=== PATIENT | female | born 1985 | race Caucasian/White ===

== ENCOUNTER 2019-09-12 05:35 | Outpatient (CLI) | payer OTHER ==
[~2019-09-12] VITALS: Ht 175 cm; Wt 96.8 kg
[~2019-09-12 05:35] MED LIST: ACHD5005 PO; AMT10T PO; BIRTH CONTROL PILL PO; IBP600T1 PO; PENT100C5 PO
[2019-09-15] MEDS ORDERED: OXYC1TAB87 PO (11:09)
[2019-09-15] MEDS ORDERED: IBUP-1780 PO (11:09)
[2019-09-15] MEDS ORDERED: DCS100C PO (11:09)
== END 2019-09-13 09:08 | disposition home or self-care (01) ==
LOC: PREOP 05:35
PROVIDERS: ATTEND Obstetrics & Gynecology
DX: Z01.818 Encounter for other preprocedural examination (principal)

== ENCOUNTER 2019-10-12 19:20 | Emergency (ER) | payer OTHER ==
[~2019-10-12] VITALS: Ht 175 cm; Wt 97.5 kg
[~2019-10-12 19:20] MED LIST changes: +DCS100C PO; +IBUP-1780 PO; +OXYC1TAB87 PO
--- OUTSIDE RECORDS SUMMARY | 2019-10-12 19:27 | XMS REPORT ---
Author Author Janae MIKE [facility] Address [address] [place] [address] Care Team Providers Care Bit Bender Name Role Phone AUDIE MIKE Unavailable PROBLEMS Type Condition ICD9-CM Code LGE28-HR Code Onset Dates Condition S tatus SNOMED Code Problem Cervical motion tenderness N94.9 Act elias 893325955 Problem Abnormal uterine bleeding N93.9 Acti ve [id number] Problem Post depression F53 Active 13258127 Problem Anxiety F41.9 Active 20499188 ALLERGIES No Information ENCOUNTERS Encounter Location Date Diagnosis [place] [address] [address] Aug, [place] [address] [address] Jul, IUD (intrauterine device) in place Z97.5 and Abnormal uterine bleeding N93.9 [place] [address] [address] Jul, IUD (intrauterine device) in place Z97.5 and Abnormal uterine bleeding N93.9 [address] [address] Jul, Well woman exam with routine gynecologic al exam Z01.419 ; Breast cancer screening Z12.39 ; Cervical motion tenderness N94.9 ; Screen for STD (sexually transmitted disease) Z11.3 ; Pelvic pain R10.2 ; IUD (intrauterine device) in place Z97.5 and Abnormal uterine bleeding N93.[address] [id number] Apr, Encounter for immunization Z23 [address] [place] [id number] Jan, Cellulitis of left leg L03.116 [facility] [address] [id number] [place] [id number] Dec, [facility] [address] [id number] [place] [id number] Dec, [facility] [address] [id number] [place] [id number] Dec, Infected insect bite or sting W57.XXXA [facility] [address] [id number] [place] [id number] Sep, Strep throat J02.0 [facility] [address] [facility] [place] [address] Jan, [facility] [address] [id number] [place] [id number] Jan, Nipple pain N64.[address] [facility] [address] [id number] [place] [id number] Oct, Strep throat J02.0 [facility] [address] [id number] [place] [id number] Aug, Acute midline thoracic back pain M54.6 [facility] [address] [id number] [place] [id number] Jul, Acute low back pain without sciatica, un specified back pain laterality M54.5 [facility] [address] [id number] [place] [address] Jul, Gastroenteritis K52.9 [facility] [address] [facility]07[place] [id number] Feb, [facility] [address] [place] [id number] [place] [id number] Feb, [facility] [address] [place] [id number] [place] [id number] Feb, [facility] [address] [place] [id number] [place] [id number] Dec, [facility] [address] [id number] Dec, [facility] [address] [id number] [place] [address] Oct, Strep sore throat J02.0 and Fever, unspe cified fever cause R50.9 [facility] [address] [id number] [place] [id number] Oct, [facility] [place] [id number] [place] [id number] Aug, [facility] [address] [id number] [place] [address] Jul, UTI symptoms R39.9 [facility] [address] [id number] [place] [address] Jun, Acute non-recurrent maxillary sinusitis J01.00 and Anxiety F41.9 [place] [id number] [place] [id number] Jun, [facility] [address] [id number] Apr, [facility] [address] [id number] [place] [address] Apr, Breast pain, right N64.4 [facility] [address] [id number] [place] [id number] Mar, problem Z91.89 and Breast pain, right N64.4 [facility] [address] [id number] [place] [address] Dec, Post depression F53 and Anxiety F 41.9 [facility] [address] [id number] [place] [id number] Oct, OME (otitis media with effusion) H65.90 ; Dizziness R42 and Post depression F53 [facility] [address] [id number] [place] [address] Oct, Post depression F53 and Overweigh t E66.3 [facility] [address] [id number] [place] [address] Oct, Post depression F53 ; Overweight E66.3 ; Breast feeding status of mother Z39.1 and Otitis externa of both ears H60.93 [facility] [address] [place] [id number] [place] [address] Oct, [facility] [address] [id number] [place] [id number] Oct, Otitis externa H60.90 and Vertigo R42 [facility] [id number] [id number] May, [facility] [address] [id number] Apr, [facility] [address] [id number] Apr, [facility] [address] [address] Oct, [facility] [address] [address] Oct, [facility] [address] [address] Mar, [facility] [address] [address] Mar, [facility] [address] [address] Mar, [facility] [address] [address] Mar, [facility] [address] [address] November, [facility] [address] [address] November, [facility] [address] [address] November, [facility] [address] [address] November, [facility] [address] [address] November, [facility] [address] [facility]75[address] [place] [address] November, [facility] [address] [facility]75[address] [place] [address] November, IMMUNIZATIONS No Known Immunizations SOCIAL HISTORY Never Assessed REASON FOR VISIT PLAN OF CARE VITAL SIGNS MEDICATIONS Unknown Medications RESULTS Name Result Date Reference Range PAP SMEAR 2013-11-16 [facility] CYTOLOGY REPORT FOOTNOTE PAP RESULT PROCEDURES No Known procedures INSTRUCTIONS MEDICATIONS ADMINISTERED No Known Medications MEDICAL (GENERAL) HISTORY Type Description Date Medical History Depression Surgical History Exploratory cervical 2013 Hospitalization History childbirth only Hospitalization History 07/2017 ER for fall
--- OUTSIDE RECORDS SUMMARY | 2019-10-12 19:27 | XMS REPORT ---
Author Author Janae Arriaza Doctor Organization [facility] Address Unknown Phone Unavailable Care Team Providers Care Coil Rewind Machine Operator Name Role Phone Migration, Doctor Unavailable Unavailable PROBLEMS Type Condition ICD9-CM Code ZIZ03-PX Code Onset Dates Condition S tatus SNOMED Code Problem Acute midline thoracic back pain M54.6 Active 838180779 Problem Nipple pain N64.4 Active 02094158 3 Problem Post depression F53 Active 69408859 Problem Anxiety F41.9 Active 77420507 ALLERGIES No Information ENCOUNTERS Encounter Location Date [facility] [address] [id number] [id number] Sep, Strep throat J02.0 [facility] [address] [facility] [id number] [place] [address] Jan, [facility] [address] [id number] [id number] Jan, Nipple pain N64.4 [facility] [place] [address] [facility] [address] [id number] [id number] Oct, Strep throat J02.0 [facility] [address] [id number] [address] Aug, Acute midline thoracic back pain M54.6 [facility] [place] [address] [id number] [id number] Jul, Acute low back pain without sciatica, un specified back pain laterality M54.5 [facility] [address] [id number][place] [address] Jul, Gastroenteritis K52.9 [facility] [address] [id number] [place] [id number] Feb, [facility] [place] [address] [id number] [place] [id number] Feb, [facility] [address] [id number] [place] [id number] Feb, [facility] [address] [id number] [place] [id number] Dec, [facility] [address] [id number] [place] [id number] Dec, [facility] [address] [id number][place] [address] Oct, Strep sore throat J02.0 and Fever, unspe cified fever cause R50.9 [facility] [address] [id number] [id number] Oct, [facility] [address] [id number] [place] [id number] Aug, [facility] [address] [id number] [facility] [address] Jul, UTI symptoms R39.9 [facility] [address] [id number] [facility] [id number] Jun, Acute non-recurrent maxillary sinusitis J01.00 and Anxiety F41.9 [facility] [address] [id number] [place] [id number] Jun, [facility] [address] [id number] [place] [id number] Apr, [facility] [address] [id number][place] [id number] Apr, Breast pain, right N64.4 [facility] [address] [id number], [place] [id number] Mar, problem Z91.89 and Breast pain, right N64.4 [facility] [address] [id number][place] [address] Dec, Post depression F53 and Anxiety F 41.9 [facility] [address] [id number], [place] [id number] Oct, OME (otitis media with effusion) H65.90 ; Dizziness R42 and Post depression F53 [facility] [address] [id number][place] [id number] Oct, Post depression F53 and Overweigh t E66.3 [facility] [address] [id number] [address] Oct, Post depression F53 ; Overweight E66.3 ; Breast feeding status of mother Z39.1 and Otitis externa of both ears H60.93 [facility] [address] [facility] [id number] [address] [place] [address] Oct, [facility] [address] [id number][place] [id number] Oct, Otitis externa H60.90 and Vertigo R42 [facility] [address] [id number] [place] [id number] May, [facility] [address] [id number] [place] [id number] Apr, [facility] [address] [id number] [place] [id number] Apr, [facility] [address] [facility] [id number] [address] [place] [address] Oct, [facility] [address] [facility] [id number] [address] [place] [address] Oct, [facility] [address] [facility] [id number] [address] [place] [address] Mar, [facility] [address] [facility] [id number] [address] [place] [address] Mar, [facility] [address] [facility] [id number] [address] [place] [address] Mar, [facility] [address] [facility] [id number] [address] [place] [address] Mar, [facility] [address] [facility] [id number] [address] [place] [address] November, [facility] [address] [facility] [id number] [address] [place] [address] November, [facility] [address] [facility] [id number] [address] [place] [address] November, [facility] [address] [facility] [id number] [address] [place] [address] November, [facility] [address] [facility] [id number] [address] [place] [address] November, [facility] [address] [facility] [id number] [address] [place] [address] November, [facility] [address] [facility] [id number] [address] [place] [address] November, IMMUNIZATIONS No Known Immunizations SOCIAL HISTORY Never Assessed REASON FOR VISIT [facility]MR-[facility] PLAN OF CARE VITAL SIGNS MEDICATIONS No Known Medications RESULTS No Results PROCEDURES No Known procedures INSTRUCTIONS MEDICATIONS ADMINISTERED No Known Medications MEDICAL (GENERAL) HISTORY Type Description Date Medical History Depression Surgical History Exploratory cervical 2013 Hospitalization History childbirth only Hospitalization History 07/2017 ER for fall
--- OUTSIDE RECORDS SUMMARY | 2019-10-12 19:27 | XMS REPORT ---
Author Janae Alvarado [facility] eClinicalWorks Address Unknown Phone Unavailable Care Team Providers Care Co Teacher Name Role Phone AUDIE MIKE CP Unavailable Allergies No Known Allergies Problems Problem Type Condition Code Onset Dates Condition Statu s Problem Counseling on other sexually transmitted diseases V65. 45 Active Problem Trichomonal vulvovaginitis 131.01 A ctive Problem Screening examination for venereal disease V74.5 Active Problem Streptococcal sore throat 034.0 Ac tive Problem Routine gynecological examination V72.31 Active Problem Screening examination for pulmonary tuberculosis V74.1 Active Medications No Known Medications Results No Known Results Summary Purpose eClinicalWorks Submission
--- OUTSIDE RECORDS SUMMARY | 2019-10-12 19:27 | XMS REPORT ---
Author Author Janae MIKE [facility] [address] [place] [address] Care Team Providers Care Cutter Operator Tile Name Role Phone AUDIE MIKE Unavailable PROBLEMS Type Condition ICD9-CM Code MNL83-BA Code Onset Dates Condition S tatus SNOMED Code Problem Cervical motion tenderness N94.9 Act elias 686473522 Problem Abnormal uterine bleeding N93.9 Acti ve 85848435899417 Problem Post depression F53 Active 81767399 Problem Anxiety F41.9 Active 93168359 ALLERGIES No Information ENCOUNTERS Encounter Location Date Diagnosis [facility] [place] [address] [address] Jul, IUD (intrauterine device) in place Z97.5 and Abnormal uterine bleeding N93.9 [facility] [place] [address] [address] Jul, IUD (intrauterine device) in place Z97.5 and Abnormal uterine bleeding N93.9 [address]07757[place] [address] Jul, Well woman exam with routine gynecologic al exam Z01.419 ; Breast cancer screening Z12.39 ; Cervical motion tenderness N94.9 ; Screen for STD (sexually transmitted disease) Z11.3 ; Pelvic pain R10.2 ; IUD (intrauterine device) in place Z97.5 and Abnormal uterine bleeding N93.9 [address] [place] [id number] Apr, Encounter for immunization Z23 [address]757[place] [id number] Jan, Cellulitis of left leg L03.[address], [place] [id number] Dec, [facility] [address] [id number] [place] [address] Dec, [facility] [address] [id number] [place] [id number] Dec, Infected insect bite or sting W57.XXXA [facility] [address] [id number] [place] [id number] Sep, Strep throat J02.0 [facility] [address] [facility]7570 [place] [address] Jan, [facility] [address] [id number] [place] [id number] Jan, Nipple pain N64.4 [facility] [address] [id number] [place] [id number] Oct, Strep throat J02.0 [facility] [address] [id number] [place] [address]32[address] Aug, Acute midline thoracic back pain M54.6 [facility] [address] [id number] [place] [id number] Jul, Acute low back pain without sciatica, un specified back pain laterality M54.5 [facility] [address] [id number] [place] [id number] Jul, Gastroenteritis K52.9 [facility] [address] [id number] Feb, [facility] [address] [id number] Feb, [facility] [address] [id number] Feb, [facility] [address] [id number] Dec, [facility] [address] [id number] Dec, [facility] [address] [id number] [place] [address]23[address] Oct, Strep sore throat J02.0 and Fever, unspe cified fever cause R50.9 [facility] [address] [id number] [place] [id number] Oct, [place] [id number] [place] [id number] Aug, [address] [id number] [place] [id number] Jul, UTI symptoms R39.[address] [id number] [place] [address] Jun, Acute non-recurrent maxillary sinusitis J01.00 and Anxiety F41.9 [place] [id number] [place] [id number] Jun, [address] [id number] Apr, [address] [id number] [place] [id number] Apr, Breast pain, right N64.4 [facility] [address] [id number] [place] [id number] Mar, problem Z91.89 and Breast pain, right N64.4 [facility] [place] [address] [facility] [address] [id number] [place] [id number] Dec, Post depression F53 and Anxiety F 41.9 [facility] [address] [facility] [address] [id number] [place] [id number] Oct, OME (otitis media with effusion) H65.90 ; Dizziness R42 and Post depression F53 [facility] [address] [id number] [place] [id number] Oct, Post depression F53 and Overweigh t E66.3 [facility] [address] [id number] [place] [id number] Oct, Post depression F53 ; Overweight E66.3 ; Breast feeding status of mother Z39.1 and Otitis externa of both ears H60.93 [facility] [address] [place] [address] [id number] [place] [address] Oct, [facility] [address] [facility] [id number] [id number] Oct, Otitis externa H60.90 and Vertigo R42 [facility] [address] [facility]07757[place] [id number] May, [facility] [address] [place] [id number] [place] [id number] Apr, [facility] [address]07757[place], [place] [id number] Apr, [facility] [address] [address] Oct, [facility] [address] [address] Oct, [facility] [address] [address] Mar, [facility] [address] [address] Mar, [facility] [address] [address] Mar, [facility] [address] [address] Mar, [facility] [address] [address] November, [facility] [address] [address] November, [facility] [address] [address] November, [facility] [address] [address] November, [facility] [address] [address] November, [facility] [address] [address] November[facility] [address] [facility] [id number] [place] [address] November, IMMUNIZATIONS No Known Immunizations SOCIAL HISTORY Never Assessed REASON FOR VISIT PLAN OF CARE VITAL SIGNS Height 69.5 in 2013-11-13 Weight 185.9 lbs 2013-11-13 Temperature 97.6 degrees Fahrenheit 2013-11-13 Heart Rate 72 bpm 2013-11-13 Respiratory Rate 16 2013-11-13 Blood pressure systolic 115 mmHg 2013-11-13 Blood pressure diastolic 70 mmHg 2013-11-13 MEDICATIONS Unknown Medications RESULTS Name Result Date Reference Range TRICHOMONAS (IN-HOUSE) 2013-11-13 Control + Exp date 09/2014 Lot # [id number] TRICHOMONAS POSITIVE UA LONG DIP 2013-11-13 LIUDMILA negative BLO + Clarity clear Color yellow Exp date GLU negative KET negative DUSTIN + Lot # [id number] NIT negative Odor No pH 6.0 _ 5.0 - 8.5 Protein negative SG >=1.030 URO 0.2 EU/dL 0.20 - 1.9 PROCEDURES Procedure Date Ordered Result Body Site TRICHOMONAS VAGIN, DIR PROBE November 13, 2013 CYTOPATH C/V AUTO FLUID REDO November 13, 2013 CHYLMD TRACH, DNA, AMP PROBE November 13, 2013 URINALYSIS, AUTO, W/O SCOPE November 13, 2013 INSTRUCTIONS MEDICATIONS ADMINISTERED No Known Medications MEDICAL (GENERAL) HISTORY Type Description Date Medical History Depression Surgical History Exploratory cervical 2013 Hospitalization History childbirth only Hospitalization History 07/2017 ER for fall
--- OUTSIDE RECORDS SUMMARY | 2019-10-12 19:27 | XMS REPORT ---
Author Janae Alvarado [facility] eClinicalWorks Address Unknown Phone Unavailable Care Team Providers Care Material Flow Engineer Name Role Phone AUDIE MIKE CP Unavailable [...]
--- OUTSIDE RECORDS SUMMARY | 2019-10-12 19:27 | XMS REPORT ---
Author Author [employer] Organization [employer] Address [address] [address] Care Team Providers Care Workforce Manager Name Role Phone MIKE, AUDIE Unavailable MIKE, AUDIE Unavailable Unavailable [facility] Unavailable NO, LOCAL PHYSICIAN Unavailable Unavailable MIKE, AUDIE Unavailable MIKE, AUDIE Unavailable MIKE, AUDIE Unavailable MIKE, AUDIE Unavailable EATON, BRITTANY Unavailable EATON, BRITTANY Unavailable EATON, BRITTANY Unavailable Migration, Doctor Unavailable Unavailable Migration, Doctor Unavailable Unavailable EATON, BRITTANY Unavailable MIKE, AUDIE J Unavailable Unavailable EATON, BRITTANY Unavailable MIKE, AUDIE Unavailable MIKE, AUDIE Unavailable MIKE, AUDIE Unavailable [facility] PCP [phone] [facility] PCP Unavailable Unavailable CLARENCE SOTO APRN Unavailable Unavailable SEALS DONIDIA E Unavailable Unavailable Allergies Normalized Allergy Reported Date of Reaction(s) Care Provider Facility Allergy Type classification allergen Allergy Onset Substance Adhesive Tape Adhesive Tape 09-14-2019 - no informatio n NIDIA [facility] Via Allergy (3 Translations: DO [place] sources.) [ adhesive Hospital - tape] [place] ([address]903) Drug Allergy Chlorhexidine Chlorhexidine 09-12-2019 - Earline SOTO , [facility] Via (8 sources.) Translations: KEEGAN [place] [ Hospital - chlorhexidine] [place] (40118) Substance Latex Latex 09-14-2019 - Earline [facility] Via Allergy (3 Translations: DO [place] sources.) [ latex] [facility] (67484) DA (2 Unclassified Soap 04-18-2014 - EARLINE SOTO [facility] Via sources.) KEEGAN [facility] (06414) Medications Current Medications Medication Ingredient Drug Dose Dates Status Sig Sig Care Class(es) (Normalized) (Original) Provid er acetaminoph Acetaminoph Opioid 09-15-19 Active no Oxycodone no en 325 mg / en / Agonist 20 information Hcl/Acetamin name oxyCODONE oxyCODONE ophen Active (no hydrochlori 1 ORAL Every phone) de 5 mg 4HRS 30 oral tablet September 14 (1 source.) 2019 11:09am docusate Docusate no 09-15-19 Active no Docusate no sodium 100 information 20 information Sodium name mg oral Active 100 (no capsule (1 ORAL Twice A phone) source.) Day September 15, 2019 11:09am lactobacill lactobacill no 100 mg 07-22-19 Active no Aci dophilus no us us information 18 - information 100 mg na me acidophilus acidophilus 07-29-19 Orally 2 (no 100 mg oral Translation 18 times a day phone) wafer (1 s: [ 1 capsule source.) Acidophilus 12h Jul, 100 mg] 2017Jul, 07 days Active no Levonorgest Progestin, Active no Mirena no information rel Progestin-c information Active name (1 source.) ontaining (no Intrauterin phone) e Device metroNIDAZO metroNIDAZO Nitroimidaz 500 mg 11-14-19 Active take 1 Flagyl 500 no LE 500 mg LE ole 14 tablet by mg 1 tablet name oral tablet Translation Antimicrobi mouth twice by Oral (n o (1 source.) s: [ Flagyl al daily route 2 phone) 500 mg] times per day for 7 days November, Active mupirocin mupirocin RNA 20 01-19-20 Active no Bactrob an 2 no 20 mg/ml Translation Synthetase mg/mL 18 - information % Exter juan antonio name topical s: [ Inhibitor 01-29-20 2 times a (no cream (1 Bactroban 2 Antibacteri 18 day 1 phone) source.) %] al application to affected area 12h Jan, Jan, 10 day(s) Active ondansetron ondansetron Serotonin-3 8 mg 07-22-19 Active no Zofran 8 MG no 8 mg oral Translation Receptor 18 information Orally ever y name strip (1 s: [ Zofran Antagonist 8 hours for (no source.) 8 MG] nausea 1 phone) tablet Jul, 07 days Active penicillin Penicillin no 500 mg 04-03-20 Active take 1 Penic illin V no v potassium V information 14 tablet by Potassium name 500 mg oral Translation mouth twice 500 mg take (no tablet (1 s: [ daily 1 tablet phone) source.) Penicillin (500 mg) by V Potassium oral route 2 500 mg] times per day for 10 days Mar, Active Completed/Discontinued Medications Medication Ingredient Drug Dose Dates Status Sig Sig Care Class(es) (Normalized) (Original) Provid er no no 04-15-20 Complete take 1 dose no information Control information 14 d by mouth Control P ill name (2 Pill once daily Discontinued (no sources.) 1 ORAL Daily phone) April 15, 2014 Problems Active Problems Problem Normalized Date of Normalized Normalized Provider Fac ility Classification Problem(s) Problem Problem Problem Sta tus Onset/Resoluti Duration on Spondylosis; Acute thoracic Episodic Active AUDIE Comm unity intervertebral back pain [place] [address] [facility] disc Translations: of [place] disorders; [ Acute [place] ([address]134) other back midline problems (20 thoracic back sources.) pain, - Acute midline thoracic back pain M54.6, - Acute low back pain without sciatica, unspecified back pain laterality M54.5, - Acute low back pain without sciatica, unspecified back pain laterality M54.5, Acute midline thoracic back pain, - Acute midline thoracic back pain M54.6] Other Body mass 09-21-2019 - Chronic Active NIDIA SEALS , [facility] Via nutritional; index (BMI) DO [place] endocrine; and 31.0-31.9, Hospital - metabolic adult [place] disorders (1 (02555) source.) Residual Family history 09-21-2019 - Episodic Active NIDIA SEA LS , [facility] Via codes; of ischemic DO [facility] unclassified heart disease Hospital - (1 source.) and other [place] diseases of (30982) the circulatory system Mood disorders Major 09-21-2019 - Chronic Active NIDIA SEA LS , [facility] Via (1 source.) depressive DO [facility] disorder, [facility] - single [place] episode, (59183) unspecified Menstrual Menometrorrhag 09-21-2019 - Chronic Active COMMUNIT Y [place] Via disorders (4 ia [facility] sources.) Translations: [facility] [ EXCESSIVE (48770) AND FREQUENT MENSTRUATION WITH, DYSMENORRHEA, UNSPECIFIED] Other Obesity, 09-21-2019 - Chronic Active NIDIA SEALS , [facility] Via nutritional; unspecified DO [facility] endocrine; and Hospital - metabolic [place] disorders (1 (51966) source.) Other Other long 09-21-2019 - Episodic Active NIDIA SEALS , [facility] Via aftercare (1 term (current) DO [place] source.) drug therapy Hospital - [place] (30604) Allergic Other 09-21-2019 - Episodic Active NIDIA SEALS , [facility] Via reactions (4 nonmedicinal DO [facility] sources.) substance Hospital - allergy status [place] Translations: (01559) [ ALLERGY STATUS TO OTH DRUG/MEDS/BIOL SUB, LATEX ALLERGY STATUS, ALLERGY STATUS TO ANALGESIC AGENT STATUS] Other Pain in wrist Episodic Active [facility] non-traumatic [facility] joint [facility] disorders (4 (48249) sources.) Unclassified Episodic Active BRITTANY EATON Commu nity (2 sources.) depression [address] [place] [address] Translations: of [facility] [ Post [place] ([address]) depression] Ovarian cyst Unspecified 09-21-2019 - Episodic Active NIDIA SE ALS , [facility] Via (2 sources.) ovarian cyst, DO [place] left side Hospital - Translations: [place] [ UNSPECIFIED (21512) OVARIAN CYST, RIGHT SIDE] Past or Other Problems Problem Normalized Date of Normalized Normalized Provider Fac ility Classification Problem(s) Problem Problem Problem Sta tus Onset/Resoluti Duration on External cause Bitten or no information no information BRITTANY E ATON [facility] codes: stung by [address] [place] [address] Center Natural/enviro nonvenomous [facility] (1 insect and [place] (42521) source.) other nonvenomous arthropods, initial encounter Translations: [ - Infected insect bite or sting W57.XXXA] Procedures Procedure Normalized Procedure Procedure Result Performer Facility Date 11-13-2013 Cytp c/v auto thin lyr no information no name (no p meron) [facility] prepj scr mnl rescr [facility] (45049) 09-15-2018 [facility] influenza no information no name (no phon e) [facility] (22652) 09-15-2018 [place] no information no name (no phone) [facility] streptococcus group a [facility] (07967) 10-27-2017 [place] no information no name (no phone) [facility] streptococcus group a [facility] (44126) 11-13-2013 [place] chlamydia no information no name (no phone) [facility] trachomatis amplified [facility] probe [facility] (87445) 11-13-2013 [place] trichomonas no information no name (no phone) [facility] vaginalis direct probe [facility] (14216) 09-15-2018 Ketorolac tromethamine no information no name (no p meron) [facility] inj [facility] (17216) 09-15-2018 Penicillin g no information no name (no phone) Com [facility] benzathine inj [facility] (03971) 10-27-2017 Penicillin g no information no name (no phone) [facility] benzathine inj [facility] (06249) 09-15-2018 Therapeutic no information no name (no phone) [facility] prophylactic/dx [facility] injection subq/im [place] (36996) 10-27-2017 Therapeutic no information no name (no phone) [facility] prophylactic/dx [facility] injection subq/im [place] (16897) 11-13-2013 Urnls dip stick/tablet no information no name (no p meron) [facility] rgnt auto w/o [facility] (30500) Immunizations Normalized Immunization Date Notes Care Provider Facili ty Immunization BICILLIN C-R 10-27-2017 - no information BRITTANY CASANOVA [address] [facility] Translations: [ 10-27-2017 [facility] BICILLIN C-R] [place] (09709) BICILLIN 09-15-2018 no information BRITTANY CASANOVA [address] Comm [facility] [place]/PENICILLIN G [facility] (87998[facility] influenza, seasonal, 04-30-2019 no information no name [facility] injectable [facility] (59244) TORADOL (IM) 60 09-15-2018 no information BRITTANY CASANOVA 10727 [facility] MG/2ML (UP TO 15 MG) [facility] (62212) TORADOL (IM) 60 08-24-2017 no information no name [facility] MG/2ML (UP TO 15 MG) [facility] (80465) Results Test Name Value Interpretation Reference Range Date Time Fa cility (Normalized) (Normalized) (Medline Reference) ua long dip on null Clarity (U) clear (no code) [facility] (14347) Color (U) yellow (no code) [facility] (33675) Glucose no information (no code) 60 - 125 mg/dL [facility] [Mass/Vol] [facility] (85394) pH (U) 6.0 _ (no code) [facility] (11491) Protein Ql (U) no information (no code) [facility] (96831) UA LONG DIP (no code) [facility] (81112) UA LONG DIP 251272 (no code) [facility] (03828) UA LONG DIP No (no code) [facility] (78820) UA LONG DIP >=1.030 (no code) [facility] (99590) UA LONG DIP 0.2 EU/dL (no code) [facility] (38320) trichomonas (in-house) on null TRICHOMONAS no information (no code) [facility] ([facility] (01680) TRICHOMONAS 09/2014 (no code) [facility] (45115) TRICHOMONAS 169389 (no code) [facility] (32081) strep a (in house) on null STREP A (IN [id number] (no code) [facility] HOUSE) [facility] (76706) STREP A (IN 03/2020 (no code) [facility] (26883) STREP A (IN [id number] (no code) [facility]) [facility] (77655) STREP A (IN 04/30 (no code) [facility] HOUSE) [facility] (07144) influenza a & b (in house) on null INFLUENZA A & B no information (no code) Critical access hospital (IN HOUSE) [facility] (11978) INFLUENZA A & B [id number] (no code) Critical access hospital (IN HOUSE) [facility] (04922) INFLUENZA A & B 04/05/21 (no code) Critical access hospital (IN HOUSE) [facility] (88200) No panel information on null Control no information (no code) [facility] (80041) Exp date 10/2019 (no code) [facility] (54964) Lot # [id number] (no code) [facility] (45373) venous blood hemoglobin measurement (mass/volume) on 2019-09-15 Hemoglobin (Bld) 9.6 g/dL (L) 12.1 - 17.2 g/dL 09-15-2019 [place] Via [Mass/Vol] 10:100500 [facility] (48735) blood monocytes/100 leukocytes on 2019-09-15 Monocytes/100 6 % (no code) 2 - 8 % 09-15-2019 [facility] WBC (Bld) 10:100500 [facility] (19828) blood monocytes automated count (number/volume) on 2019-09-15 Monocytes (Bld) 1.3 10*3/uL (H) 0.3 - 0.9 09-15-2019 Asce nsion Via [#/Vol] 10*3/uL 10:10-0500 [facility] l (43516) blood hematocrit (volume fraction) on 2019-09-15 Hematocrit (Bld) 29 % (L) 36.1 - 50.3 % 09-15-2019 [facility] Via [Volume 10:100500 [facility] fraction] (65801) blood erythrocytes automated count (number/volume) on 2019-09-15 RBC (Bld) 3.39 10*6/uL (L) 4.2 - 6.1 09-15-2019 [place] Via [#/Vol] 10*6/uL 10:050 [facility] l (95832) automated erythrocyte mean corpuscular volume (mcv) measurement on 2019-09-15 MCV (RBC) 86 fL (no code) 80 - 100 fL 09-15-2019 [place] Via [Entitic vol] 10:050 [facility] (85464) automated erythrocyte mean corpuscular hemoglobin concentration measurement (mass/volume) on 2019-09-15 MCHC (RBC) 33 g/dL (no code) 32 - 36 g/dL 09-15-2019 [facility] [Mass/Vol] 10:050 [facility] (11182) automated erythrocyte mean corpuscular hemoglobin (mass per erythrocyte) on 2019-09-15 MCH (RBC) 28 pg (no code) 27 - 31 pg 09-15-2019 [place] V ia [Entitic mass] 10:10 [facility] (97744) automated erythrocyte distribution width ratio on 2019-09-15 Erythrocyte 12.3 % (no code) 11.6 - 14.6 % 09-15-2019 [facility] Via distribution 10:050 [facility] width (RBC) (25810) [Ratio] automated eosinophil count on 2019-09-15 Eosinophils 0.0 10*3/uL (no code) 0.05 - 0.5 09-15-2019 [facility] Via (Bld) [#/Vol] 10*3/uL 10:050 [facility] al (59191) automated blood platelet mean volume measurement on 2019-09-15 Platelet mean 10.5 fL (H) 7.2 - 11.7 fL 09-15-2019 Asce nsion Via volume (Bld) 10:100500 [facility] [Entitic vol] (61701) automated blood platelet count (count/volume) on 2019-09-15 Platelets (Bld) 305 10*3/uL (no code) 150 - 450 09-15-2019 Asce nsion Via [#/Vol] 10*3/uL 10: [facility] (16334) automated blood neutrophils/100 leukocytes on 2019-09-15 Neutrophils/100 77 % (H) 40 - 60 % 09-15-2019 [facility] WBC (Bld) 10: [facility] (09702) automated blood neutrophil count (number/volume) on 2019-09-15 Neutrophils 15.9 10*3/uL (H) 1.7 - 7 10*3/uL 09-15-2019 A [facility] Via (Bld) [#/Vol] 10: [facility] (25265) automated blood lymphocytes/100 leukocytes on 2019-09-15 Lymphocytes/100 16 % (no code) 20 - 40 % 09-15-2019 [facility] WBC (Bld) 10: [facility] (70475) automated blood lymphocyte count (number/volume) on 2019-09-15 Lymphocytes 3.4 10*3/uL (no code) 0.9 - 2.9 09-15-2019 [facility] (Bld) [#/Vol] 10*3/uL 10: [facility] al (25885) automated blood leukocyte count (number/volume) on 2019-09-15 WBC (Bld) 20.6 10*3/uL (H) 3.5 - 10.5 09-15-2019 [facility] [#/Vol] 10*3/uL 10:050 [facility] l (72250) automated blood eosinophils/100 leukocytes on 2019-09-15 Eosinophils/100 0 % (no code) 1 - 4 % 09-15-2019 [facility] WBC (Bld) 10:10050 [facility] (24081) automated blood basophils/100 leukocytes on 2019-09-15 Basophils/100 0 % (no code) 0.5 - 1 % 09-15-2019 [facility] WBC (Bld) 10:100500 [facility] (13125) automated blood basophil count (number/volume) on 2019-09-15 Basophils (Bld) 0.0 10*3/uL (no code) 0 - 0.3 10*3/uL 09-15-2019 [place] Via [#/Vol] 10:10-0500 [facility] (18281) methicillin resistant staphylococcus aureus (mrsa) screening culture on 2019-09-14 MRSA isol Org MRSA not (no code) 09-14-2019 [place] Vi a specific cx Ql isolated 10:550500 [facility] (Un[facility] spec) (80541) No panel information on 2019-09-10 ABO group Nom A (no code) [facility] ([facility]ld[facility] (87117) Basophils (Bld) 0.083 10*3/uL (N) 0 - 0.3 10*3/uL [facility] [#/Vol] [facility] (61621) Basophils/100 0.7 % (N) 0.5 - 1 % [facility] alth WBC (Bld) [facility] (50991) Blood group NO ANTIBODIES (N) [facility] antibody screen DETECTED [facility] (80403) Eosinophils 0.202 10*3/uL (N) 0.05 - 0.5 [facility] He alth (Bld) [#/Vol] 10*3/uL [facility] (58953) Eosinophils/100 1.7 % (N) 1 - 4 % [facility] WBC (Bld) [facility] (79109) Erythrocyte 11.8 % (N) 11.6 - 14.6 % [facility] ealth distribution [facility] (RBC) [facility] [Ratio] (76604) Hematocrit (Bld) 39.7 % (N) 36.1 - 50.3 % [facility] [Volume [facility]] [facility] (84804) Hemoglobin (Bld) 13.2 g/dL (N) 12.1 - 17.2 g/dL [facility] [Mass/Vol] [facility] (86472) Lymphocytes 3.749 10*3/uL (N) 0.9 - 2.9 [facility] (Bld) [#/Vol] 10*3/uL [facility] (84036) Lymphocytes/100 31.5 % (N) 20 - 40 % [facility] WBC (Bld) [facility] (23091) MCH (RBC) 28.2 pg (N) 27 - 31 pg [facility] Heal th [Entitic mass] [facility] (42091) MCHC (RBC) 33.2 g/dL (N) 32 - 36 g/dL [facility] [Mass/Vol] [facility] (36022) MCV (RBC) 84.8 fL (N) 80 - 100 fL [facility] Hea lth [Entitic vol] [facility] (50807) Monocytes (Bld) 0.702 10*3/uL (N) 0.3 - 0.9 [facility] Health [#/Vol] 10*3/uL [facility] (59790) Monocytes/100 5.9 % (N) 2 - 8 % [facility] He alth WBC (Bld) [facility] (59362) Neutrophils 7.164 10*3/uL (N) 1.7 - 7 10*3/uL [facility] (Bld) [#/Vol] [facility] (05207) Neutrophils/100 60.2 % (N) 40 - 60 % [facility] WBC (Bld) [facility] (33994) Platelet mean 11.4 fL (N) 7.2 - 11.7 fL [facility] volume (Bld) [facility] [Entitic vol] [facility] (19359) Platelets (Bld) 332 10*3/uL (N) 150 - 450 [facility] Health [#/Vol] 10*3/uL [facility] (74759) RBC (Bld) 4.68 10*6/uL (N) 4.2 - 6.1 [facility] Hea lth [#/Vol] 10*6/uL [facility] (09057) Rh Nom (Bld) no information (no code) [facility] Healt h [facility] (97633) WBC (Bld) 11.9 10*3/uL (H) 3.5 - 10.5 [facility] [#/Vol] 10*3/uL [facility] (23121) No panel information on 2019-07-30 Albumin 4.6 g/dL (N) 3.4 - 5.4 g/dL [facility] [Mass/Vol] [facility] (49512) Albumin/Globulin 1.5 {ratio} (N) 1 - 2.5 {ratio} Comm [facility] [Mass ratio] [facility] (96198) ALP [Catalytic 55 U/L (N) 44 - 147 U/L [facility] Health activity/Vol] [facility] (37484) ALT [Catalytic 16 U/L (N) 4 - 40 U/L [facility] ealth activity/Vol] [facility] (60093) AST [Catalytic 16 U/L (N) 10 - 34 U/L [facility] activity/Vol] [facility] (67731) Basophils (Bld) 0.037 10*3/uL (N) 0 - 0.3 10*3/uL [facility] [#/Vol] [facility] (94675) Basophils/100 0.4 % (N) 0.5 - 1 % [facility] WBC (Bld) [facility] (88650) Bilirubin 0.5 mg/dL (N) 0.1 - 1.2 mg/dL [facility] [Mass/Vol] [facility] (75388) C. trachomatis NOT DETECTED (N) [facility] rRNA HIRAL+probe [facility] (Unsp spec) [facility] (55654) Calcium 9.4 mg/dL (N) 8.5 - 10.2 mg/dL [facility] [Mass/Vol] [facility] (36762) Chloride 107 mmol/L (N) 95 - 106 mmol/L [facility] [Moles/Vol] [facility] (78580) Cholesterol 117 mg/dL (N) 180 - 200 mg/dL [facility] [Mass/Vol] [facility] (46738) Cholesterol in 41 mg/dL (L) [facility] HDL [Mass/Vol] [facility] (32949) Cholesterol in 62 mg/dL (N) 0 - 100 mg/dL [facility] LDL [Mass/Vol] [facility] (97381) Cholesterol non 76 mg/dL (N) [facility] HDL [Mass/Vol] [facility] (77777) Cholesterol.tota 2.9 {ratio} (N) Counts Include [facility] lt l/Cholesterol in [facility] HDL [Mass ratio] [facility] (70288) CLINICAL no information (N) [facility] INFORMATION: [facility] (23945) CO2 [Moles/Vol] 26 mmol/L (N) 23 - 29 mmol/L [facility] (74200) COMMENT no information (no code) [facility] (87483) COMMENT no information (no code) [facility] (49857) Creatinine 0.72 mg/dL (N) [facility] [Mass/Vol] [facility] (45953) [employer] no information (N) Critical [facility] hospital stain Nom [facility] (Cvx/Vag) [ID] [facility] (13123) Date of previous no information (N) [facility] biopsy [facility] (60991) Date of previous 2017 (N) [facility] PAP smear [facility] (17597) Eosinophils 0.184 10*3/uL (N) 0.05 - 0.5 [facility] alth (Bld) [#/Vol] 10*3/uL [facility] (55054) Eosinophils/100 2.0 % (N) 1 - 4 % [facility] WBC (Bld) [facility] (79397) Erythrocyte 11.8 % (N) 11.6 - 14.6 % [facility] ealth distribution [facility] width (RBC) [facility] [Ratio] (68681) GFR/1.73 sq M 128 (N) 90 - 120 [facility] predicted among mL/min/{1.73_m2} mL/min/{1.73_m2} [facility] [place] MDRD [facility] (S/P/Bld) [Vol (60893) rate/Area] GFR/1.73 sq 111 (N) 90 - 120 [facility] th M.predicted MDRD mL/min/{1.73_m2} mL/min/{1.73_m2} [facility] (S/P/Bld) [Vol [facility] rate/Area] (07541) Globulin (S) 3.1 g/dL (N) 2 - 3.5 g/dL [facility] ealth [Mass/Vol] [facility] (07490) Glucose 103 mg/dL (H) 60 - 125 mg/dL [facility] [Mass/Vol] [facility] (31457) Hematocrit (Bld) 39.2 % (N) 36.1 - 50.3 % [facility] [Volume [facility]] [facility] (71533) Hemoglobin (Bld) 13.4 g/dL (N) 12.1 - 17.2 g/dL [facility] [Mass/Vol] [facility] (98135) HSV identified NOT ISOLATED (N) [facility] Or[facility] specific cx [facility] [place] (Unsp spec) [facility] (69206) Last menstrual CURRENT (N) [facility] period start [facility] (50269) Lymphocytes 2.659 10*3/uL (N) 0.9 - 2.9 [facility] He alth (Bld) [#/Vol] 10*3/uL [facility] (85452) Lymphocytes/100 28.9 % (N) 20 - 40 % [facility] WBC (Bld) [facility] (08239) MCH (RBC) 28.9 pg (N) 27 - 31 pg [facility] th [Entitic mass] [facility] (49138) MCHC (RBC) 34.2 g/dL (N) 32 - 36 g/dL [facility] alth [Mass/Vol] [facility] (51069) MCV (RBC) 84.5 fL (N) 80 - 100 fL [facility] [Entitic vol] [facility] (57845) Microscopic no information (N) [facility]to [facility] Nom (Cvx) [facility] (12578) Monocytes (Bld) 0.598 10*3/uL (N) 0.3 - 0.9 [facility] [#/Vol] 10*3/uL [facility] (44457) Monocytes/100 6.5 % (N) 2 - 8 % [facility] He alth WBC (Bld) [facility] (16280) N. gonorrhoeae NOT DETECTED (N) [facility] h rRNA HIRAL+probe [facility] Ql (Unsp spec) [facility] (60254) Neutrophils 5.722 10*3/uL (N) 1.7 - 7 10*3/uL [facility] (Bld) [#/Vol] [facility] (00936) Neutrophils/100 62.2 % (N) 40 - 60 % [facility] WBC (Bld) [facility] (80458) Platelet mean 11.4 fL (N) 7.2 - 11.7 fL [facility] volume (Bld) [facility] [Entitic vol] [facility] (85327) Platelets (Bld) 334 10*3/uL (N) 150 - 450 [facility] [#/Vol] 10*3/uL [facility] (11071) Potassium 4.1 mmol/L (N) 3.7 - 5.2 mmol/L [facility] [Moles/Vol] [facility] (78834) Protein 7.7 g/dL (N) 6.4 - 8.3 g/dL [facility] [Mass/Vol] [facility] (35440) RBC (Bld) 4.64 10*6/uL (N) 4.2 - 6.1 Counts Include [facility] lth [#/Vol] 10*6/uL [facility] (98369) Sodium 139 mmol/L (N) 135 - 145 mmol/L [facility] [Moles/Vol] [facility] (64423) Specimen source Cervix (N) Critical access hospital Cyto stain Nom [facility] (Cvx/Vag) [facility] (85046) Specimen source CERVIX (no code) Critical access hospital Nom (Unsp spec) [facility] (64330) Statement of no information (N) [facility] Cyto [facility] (Cvx/Vag) [facility] [Interp] (54316) Triglyceride 61 mg/dL (N) 0 - 150 mg/dL [facility] [Mass/Vol] [facility] (22280) TSH Qn 1.59 m[IU]/L (N) 0.4 - 4 m[IU]/L [facility] (42545) Urea nitrogen 11 mg/dL (N) 7 - 20 mg/dL [facility] [Mass/Vol] [facility] (67235) Urea NOT APPLICABLE (no code) [facility] nitrogen/Creatin [facility] [Mass ratio] [facility] (14755) WBC (Bld) 9.2 10*3/uL (N) 3.5 - 10.5 Critical access hospital [#/Vol] 10*3/uL [facility] (04435) No panel information on 2018-09-15 Control no information (no code) [facility] (06412) Control no information (no code) [facility] (05166) Exp date 04/05/21 (no code) [facility] (83845) Exp date 04/30 (no code) [facility] (87962) Lot # [id number] (no code) [facility] (57519) Lot # [id number] (no code) [facility] (06304) Vital Signs Vital Sign Value Interpretation Reference Date Time Care Prov ider Facility (Normalized) (Normalized) Range BMI (Body Mass 30.05 kg/m2 (no code) 15 - 25 kg/m2 09-15-2018 Rody GONZÁLESON Community Index) 10:00-0500 49952 [facility] (44399) BMI (Body Mass 29.3 kg/m2 (no code) 15 - 25 kg/m2 10-27-2017 MARY CASANOVA Community Index) 10:40-0400 03809 [facility] (34064) BMI (Body Mass 28.77 kg/m2 (no code) 15 - 25 kg/m2 07-22-2017 JE NNIFER Community Index) 13:00-0500 [place] [id number] [facility] (58113) Body height 176.53 cm (no code) cm 11-13-2013 AUDIE Ms mmunity 13:39-0400 [place] [id number] [facility] (10430) Body 99.5 [degF] (no code) 97.8 - 99.0 09-15-2018 BRITTANY EAT ON [facility] Temperature [degF] 10:00-0500 80998 [facility] (04207) Body 100.8 [degF] (no code) 97.8 - 99.0 10-27-2017 BRITTANY EA TON [facility] Temperature [degF] 10:40-0400 29071 [facility] (13196) Body 97.1 [degF] (no code) 97.8 - 99.0 07-22-2017 [facility] Temperature [degF] 13:00-0500 [place] 724813 [facility] (69399) Body 99.2 [degF] (no code) 97.8 - 99.0 04-03-2014 BRITTANY EAT ON [facility] Temperature [degF] 17:52-0400 94910 [facility] (10091) Body 97.6 [degF] (no code) 97.8 - 99.0 11-13-2013 [facility] temperature [degF] 13:39-0400 [place] 724813 [facility] (57028) Body weight 93.67 kg (no code) kg 09-15-2018 BRITTANY EATON Community 10:00-0500 70197 [facility] (01996) Body weight 86.18 kg (no code) kg 04-03-2014 BRITTANY EATON [facility] 17:52-0400 50111 [facility] (64386) Body weight 84.32 kg (no code) kg 11-13-2013 AUDIE [facility] munity 13:39-0400 [place] 724813 [facility] (96076) Height 176.53 cm (no code) cm 09-15-2018 BRITTANY [facility] ommunity 10:00-[address] [place] [address] (70865) Height 176.53 cm (no code) cm 10-27-2017 BRITTANY [facility] om[facility]ity 10:40-[address] [place] [address] (03481) Height 176.53 cm (no code) cm 07-22-2017 AUDIE Puneet nity 13:00-[address] (00259) Height 176.53 cm (no code) cm 04-03-2014 BRITTANY [facility] ommunity 17:52-[address] [place] [address] (96089) Pulse Oximetry 98 % (no code) 95 - 100 % 09-15-2018 BRITTANY CENTENO [facility] 10:00-[address] [place] [address] (95804) Pulse Oximetry 97 % (no code) 95 - 100 % 07-22-2017 [facility] 13:00-[address] (29590) Weight 91.31 kg (no code) kg 10-27-2017 BRITTANY Estevez mmunity 10:40-[address] [place] [address] (89377) Weight 89.68 kg (no code) kg 07-22-2017 AUDIE [facility] ity 13:00-[address] (67804) Interventions No Information Plan of Treatment Normalized Care Care Detail Care Activity Date Care Provider F acility Activity Patient Education Hysterectomy (DC) no information MARCOS [facility] [place] [facility] [id number] [place] [address] (79681) Goals Patient Goal Desired Goal no information no information Social History Normalized Code Original Code Date Value Tobacco smoking status Tobacco smoking status 09-12-2019 - Never smoked tobacco NHIS NHIS (finding) no information no information 04-15-2014 Occasionally Us es no information no information 12-15-2012 No no information no information 09-12-2019 Never a Smoker Sex Assigned At Sex Assigned At 1985 - Female Functional Status Status Assessment Result Care Provider Facility Functional status [facility] Opioid-induced [facility] [place] [facility] Sedation Scale (POSS) [address] ([address]212) Awake and alert Mental Status Status Assessment Result Care Provider Facility Cognitive function Comprehension Ability [facility] [place] [facility] Understands Concepts [address] (56201) Cognitive function [facility]id[facility] [place] [facility] Sedation Scale (POSS) [address] (24194) Awake and alert Encounters Encounter Normalized Encounter Encounter Diagnosis Care Provi aliya Organization Date Type 09-14-2019 Admission to day no information (no phone) [facility] (no phone) 09-15-2019 04-03-2014 [facility] no information BRITTANY CASANOVA ( no [facility] - phone) Doctor (no phone) 04-03-2014 Migration (no phone) - BRITTANY CASANOVA (no 04-03-2014 phone) Doctor Migration (no phone) BRITTANY CASANOVA (no phone) Doctor Migration (no phone) 03-16-2014 [facility] no information Doctor Migrati on (no [facility] - phone) (no phone) 03-16-2014 - 03-16-2014 11-16-2013 [facility] no information AUDIE Gloria (no [facility] - phone) Doctor (no phone) 11-16-2013 [facility] (no phone) - AUDIE MIKE (no 11-16-2013 phone) Doctor Migration (no phone) AUDIE MIKE (no phone) Doctor Migration (no phone) 11-13-2013 [facility] no information AUDIE Gloria (no [facility] - phone) Doctor (no phone) 11-13-2013 [facility] (no phone) - AUDIE MIKE (no 11-13-2013 phone) Doctor Migration (no phone) AUDIE MIKE (no phone) Doctor Migration (no phone) 08-24-2017 Patient encounter no information no name (no phone) no organization name (no phone) 07-22-2017 Patient encounter no information no name (no phone) no organization name (no phone) 09-14-2019 Patient encounter no information NIDIA E SEALS DO ( no [facility] - procedure phone) [facility] 09-15-2019 (no phone) 09-12-2019 Patient encounter no information (no phone) Ascen yadiel [facility] (no phone) 09-13-2019 09-12-2019 Patient encounter no information NIDIA E SEALS DO ( no [facility] - procedure phone) [facility] 09-13-2019 (no phone) 09-10-2019 Patient encounter no information (no phone) [facility] (no phone) 09-03-2019 Patient encounter no information (no phone) [facility] (no phone) 08-10-2019 Patient encounter no information no name (no phone) no organization name procedure (no phone) 04-30-2019 Patient encounter no information no name (no phone) no organization name procedure (no phone) 01-08-2019 Patient encounter no information no name (no phone) no organization name procedure (no phone) 12-26-2018 Patient encounter no information no name (no phone) no organization name procedure (no phone) 12-26-2018 Patient encounter no information no name (no phone) no organization name procedure (no phone) 09-15-2018 Patient encounter no information no name (no phone) no organization name procedure (no phone) 09-13-2019 no information Encounter for other no name (no phon e) no organization name preprocedural (no phone) examination Medical Equipment The data below is from unstructured sourcesNo Medical Equipment Information availableNo Medical Equipment Information availableNo Medical Equipment Information available Payers Normalized Payer Value Self-pay no information ([id number]) Evaluation note Note Type Note Facility Evaluation No Assessments Information Available A scension note [facility] (58179) History general Narrative - Reported Note Type Note Facility History general Narrative - Reported Type Medical Depression History Surgical Exploratory cervical 2014 History Hospitaliz childbirth only ation History Hospitaliz 07/2017 ER for fall ation History [facility] (35861) Summary Purpose eClinicalWorks SubmissioneClinicalWorks SubmissioneClinicalWorks SubmissioneClinicalWorks SubmissioneClinicalWorks SubmissioneClinicalWorks Submission Advance Directives Directive Response Recor ded Date Advance Directives N 01/20 12:34pm Health Care Power of Waterproofing Machine Operator N 12/15/12 12:34pm Organ Donor Y 12/15/12 1 2:34pm Directive Response Recor ded Date/Time Advance Directives No 4:36pm Health Care Power of Waterproofing Machine Operator No 04/15/14 4:36pm Organ Donor Yes 04/15/14 4:36pm Resuscitation Status Full Code 04/15/14 4:36pm Directive Response Recor ded Date/Time Advance Directives No 8:56pm Health Care Power of Waterproofing Machine Operator No 03/01/14 8:56pm Organ Donor Yes 03/01/14 8:56pm Resuscitation Status Full Code 03/01/14 8:56pm Advance Directive Response Recorded Date/Time Advance Directives No [facility] 2019 3:09pm Health Care Power of Waterproofing Machine Operator No September 12, 2019 3:09pm Organ Donor Yes September 3:09pm Resuscitation Status Full Code September 12, 2019 3:09pm Advance Directive Response Recorded Date/Time Advance Directives No [facility] 2019 7:40am Health Care Power of Waterproofing Machine Operator No September 14, 2019 7:40am Organ Donor Yes September 7:40am Resuscitation Status Full Code September 14, 2019 7:40am Discharge Instructions No hospital discharge instructions.No hospital discharge instructions. Additional Source Comments This clinical document has been generated using [employer] software that has been certified by the Office of the National Coordinator for Health Information Technology (ONC 15.99.04.3023.Diam.31.00.0.199446) and the National Committee for Cd Reactor Operator Head (NCQA, as an eMeasure certified technology). FOR RECORDS PERTAINING TO PATIENTS WHO ARE OR HAVE BEEN ENROLLED IN A CHEMICAL D EPENDENCY/SUBSTANCE ABUSE PROGRAM, SOME INFORMATION MAY BE OMITTED. This clinica l summary was aggregated from multiple sources. Caution should be exercised in using it in the provision of clinical care. This summary normalizes information from multiple sources, and as a consequence, information in this document may ma terially change the coding, format and clinical context of patient data. In rosi tion, data may be omitted in some cases. CLINICAL DECISIONS SHOULD BE BASED ON T HE PRIMARY CLINICAL RECORDS. [employer] provides no warranty or guara ntee of the accuracy or completeness of information in this document.The followi ng information is based on time limited clinical information UNRECOGNIZED CONTENT PROVIDED BELOW FOR UNRECOGNIZED SECTION MEDICAL (GENERAL) HISTORY Type Description Date Medical History Depression Surgical History Exploratory cervical 2013 Hospitalization History childbirth only Type Description Date Medical History Depression Surgical History Exploratory cervical 2013 Hospitalization History childbirth only Hospitalization History 07/2017 ER for fal l UNRECOGNIZED CONTENT PROVIDED BELOW FOR UNRECOGNIZED SECTION REASON FOR VISIT Medication [id number] throat/ear pain/fever started last night. bferrisma
--- OUTSIDE RECORDS SUMMARY | 2019-10-12 19:27 | XMS REPORT ---
Author Author Janae Arriaza Doctor Organization [facility] Address Unknown Phone Unavailable Care Team Providers Care Tax Manager Public Name Role Phone Migration, Doctor Unavailable Unavailable PROBLEMS Type Condition ICD9-CM Code EAH04-VK Code Onset Dates Condition S tatus SNOMED Code Problem Acute midline thoracic back pain M54.6 Active 570380048 Problem Nipple pain N64.4 Active 52878171 3 Problem Post depression F53 Active 89523671 Problem Anxiety F41.9 Active 72025014 ALLERGIES No Information ENCOUNTERS Encounter Location Date [facility] [address] [id number] [id number] Sep, Strep throat J02.0 [facility] [address] [facility] [id number] [address] [address] Jan, [facility] [address] [id number][place] [id number] Jan, Nipple pain N64.4 [facility] [place] [address] [facility] [address] [id number][place] [id number] Oct, Strep throat J02.0 [facility] [address] [id number], [place] [id number] Aug, Acute midline thoracic back pain M54.6 [facility] [place] [address] [id number], [place] [id number] Jul, Acute low back pain without sciatica, un specified back pain laterality M54.5 [facility] [address] [id number], [place] [id number] Jul, Gastroenteritis K52.9 [facility] [address] [id number] [place] [id number] Feb, [facility] [place] [address] [id number] [place] [id number] Feb, [facility] [address] [id number] [place] [id number] Feb, [facility] [address] [id number] [place] [id number] Dec, [facility] [address] [id number] [place] [id number] Dec, [facility] [address] [id number], [place] [id number] Oct, Strep sore throat J02.0 and Fever, unspe cified fever cause R50.9 [facility] [address] [id number] [facility] [id number] Oct, [facility] [address] [id number] [place] [id number] Aug, [facility] [address] [id number] BE[facility]IORAL [facility] [id number] Jul, UTI symptoms R39.9 [facility] [address] [id number] BEHAVIORAL [facility]ALTH SYSTEM[place] [id number] Jun, Acute non-recurrent maxillary sinusitis J01.00 and Anxiety F41.9 [facility] [address] [id number] [place] [id number] Jun, [facility] [address] [id number] [place] [id number] Apr, [facility] [address] [id number], [place] [id number] Apr, Breast pain, right N64.[address] [facility] [address] [id number], [place] [id number] Mar, problem Z91.89 and Breast pain, right N64.4 [facility] [address] [id number], [place] [id number] Dec, Post depression F53 and Anxiety F 41.[address] [facility] [address] [id number], [place] [id number] Oct, OME (otitis media with effusion) H65.90 ; Dizziness R42 and Post depression F53 [facility] [address] [id number], [place] [id number] Oct, Post depression F53 and Overweigh t E66.3 [facility] [address] [id number], [place] [id number] Oct, Post depression F53 ; Overweight E66.3 ; Breast feeding status of mother Z39.1 and Otitis externa of both ears H60.93 [facility] [address] [facility] [id number] [address] [place] [phone] Oct, [facility] [address] [id number], [place] [id number] Oct, Otitis externa H60.90 and Vertigo R42 [facility] [address] [id number] [place] [id number] May, [facility] [address] [id number] [place] [id number] Apr, [facility] [address] [id number] [place] [id number] Apr, [facility] [address] [facility] [id number] [address] [place] [phone] Oct, [facility] [address] [facility] [id number] [address] [place] [phone] Oct, [facility] [address] [facility] [id number] [address] [place] [phone] Mar, [facility] [address] [facility] [id number] [address] [place] [phone] Mar, [facility] [address] [facility] [id number] [address] [place] [phone] Mar, [facility] [address] [facility] [id number] [address] [place] [phone] Mar, [facility] [address] [facility] [id number] [address] [place] [id number] November, [facility] [address] [facility] [id number] [address] [place] [phone] November, [facility] [address] [facility] [id number] [address] [place] [phone] November, [facility] [address] [facility] [id number] [address] [place] [phone] November, [facility] [address] [facility] [id number] [address] [place] [phone] November, [facility] [address] [facility] [id number] [address] [place] [phone] November, [facility] [address] [facility] [id number] [address] [place] [phone] November, IMMUNIZATIONS No Known Immunizations SOCIAL HISTORY Never Assessed REASON FOR VISIT [facility] PLAN OF CARE VITAL SIGNS MEDICATIONS Medication Instructions Dosage Frequency Start Date End Date Duration S tatus Flagyl 500 mg 1 tablet by Oral route 2 times per day f or 7 days November, Active Penicillin V Potassium 500 mg take 1 tab let (500 mg) by oral route 2 times per day for 10 days Mar, Active RESULTS No Results PROCEDURES No Known procedures INSTRUCTIONS MEDICATIONS ADMINISTERED No Known Medications MEDICAL (GENERAL) HISTORY Type Description Date Medical History Depression Surgical History Exploratory cervical 2013 Hospitalization History childbirth only Hospitalization History 07/2017 ER for fall
--- OUTSIDE RECORDS SUMMARY | 2019-10-12 19:27 | XMS REPORT ---
Author Author Janae CASANOVA Organization [facility] [place] Address [address] [place] [address] Care Team Providers Care Litigation Paralegal Name Role Phone BRITTANY CASANOVA Unavailable PROBLEMS Type Condition ICD9-CM Code HWA42-HU Code Onset Dates Condition S tatus SNOMED Code Problem Acute midline thoracic back pain M54.6 Active 327275141 Problem Nipple pain N64.4 Active 32997398 3 Problem Post depression F53 Active 36426988 Problem Anxiety F41.9 Active 47252739 ALLERGIES Substance Reaction Event Type Date Status Tramadol HCl anaphylaxis Drug Allergy Sep, Active betadine rash Non Drug Allergy Sep, Active ENCOUNTERS Encounter Location Date Diagnosis [facility] [address] [id number], [place] [id number] Sep, Strep throat J02.0 [facility] [address] [facility] [id number] [address] [address] Jan, [facility] [address] [facility] [id number], [place] [id number] Jan, Nipple pain N64.4 [facility] [address] [facility] [id number], [place] [address] Oct, Strep throat J02.0 [facility] [address] [facility] [id number], [place] [id number] Aug, Acute midline thoracic back pain M54.6 [facility] [address] [facility] [address] [id number], [place] [id number] Jul, Acute low back pain without sciatica, un specified back pain laterality M54.5 [facility] [address] [facility] [id number], [place] [address] Jul, Gastroenteritis K52.9 [facility] [place] [address] [id number] [place] [id number] Feb, [facility] [place] [address] [id number] [place] [id number] Feb, [facility] [place] [address] [id number] [place] [id number] Feb, [facility] [place] [address] [id number] [place] [id number] Dec, [facility] [place] [address] [id number] [place] [id number] Dec, [facility] [address] [id number] [employer] [id number] Oct, Strep sore throat J02.0 and Fever, unspe cified fever cause R50.[address] [facility] [address] [id number] [place] [employer] [id number] Oct, [facility] [place] [address] [id number] [place] [id number] Aug, [facility] [address] [id number] [place] [address] Jul, UTI symptoms R39.[address] [facility] [address] [id number] [place] [id number] Jun, Acute non-recurrent maxillary sinusitis J01.00 and Anxiety F41.9 [facility] [place] [address] [id number] [place] [phone] Jun, [facility] [place] [address] [id number] [facility] [id number] Apr, [facility] [address] [id number] [place] [id number] Apr, Breast pain, right N64.4 [facility] [address] [id number] [place] [employer] [id number] Mar, problem Z91.89 and Breast pain, right N64.4 [facility] [address] [id number], [place] [address] Dec, Post depression F53 and Anxiety F 41.[address] [facility] [address] [id number], [place] [id number] Oct, OME (otitis media with effusion) H65.90 ; Dizziness R42 and Post depression F53 [facility] [address] [id number], [place] [address] Oct, Post depression F53 and Overweigh t E66.3 [facility] [id number], [place] [id number] Oct, Post depression F53 ; Overweight E66.3 ; Breast feeding status of mother Z39.1 and Otitis externa of both ears H60.93 [facility] [address] [id number] [address] [place] [address] Oct, [facility] [address] [id number], [place] [id number] Oct, Otitis externa H60.90 and Vertigo R42 [facility] [address] [id number] [place] [phone] May, [facility] [address] [id number] [place] [id number] Apr, [facility] [address] [id number] [place] [phone] Apr, [facility] [address] [id number] [address] [place] [address] Oct, [facility] [address] [id number] [address] [place] [address] Oct, [facility] [address] [id number] [address] [place] [address] Mar, [facility] [address] [id number] [address] [place] [address] Mar, [facility] [address] [id number] [address] [place] [address] Mar, [facility] [address] [id number] [address] [place] [address] Mar, [facility] [address] [id number] [address] [place] [address] November, [facility] [address] [id number] [address] [place] [address] November, [facility] [address] [id number] [address] [place] [phone] November, [facility] [address] [id number] [address] [place] [address] November, [facility] [address] [id number] [address] [place] [phone] November, [facility] [address] [id number] [address] [place] [phone] November, [facility] [address] [id number] [address] [place] [address] November, IMMUNIZATIONS Vaccine Route Administration Date Status TORADOL (IM) 60 MG/2ML (UP TO 15 MG) IM Intramuscular September 15, 2018 Administered BICILLIN LA/PENICILLIN G BENZATHINE IM Intramuscular September 15 019 Administered SOCIAL HISTORY Never Assessed REASON FOR VISIT Sore throat/ear pain/fever started last night. bferrisma PLAN OF CARE Activity Details Follow Up prn Reason: VITAL SIGNS Height 69.5 in 2018-09-15 Weight 206.5 lbs 2018-09-15 Temperature 99.5 degrees Fahrenheit 2018-09-15 Heart Rate 95 bpm 2018-09-15 Respiratory Rate 18 2018-09-15 Oximetry 98 % 2018-09-15 BMI 30.05 kg/m2 2018-09-15 Blood pressure systolic 125 mmHg 2018-09-15 Blood pressure diastolic 88 mmHg 2018-09-15 MEDICATIONS Medication Instructions Dosage Frequency Start Date End Date Duration S adriana Wilcox Active RESULTS Name Result Date Reference Range INFLUENZA A & B (IN HOUSE) 2018-09-15 INFLUENZA A NEGATIVE INFLUENZA B NEGATIVE Control POSITIVE Lot # [id number] Exp date 04/05/21 STREP A (IN HOUSE) 2018-09-15 STREP A POSITIVE Control POSITIVE Lot # [id number] Exp date 04/30 PROCEDURES Procedure Date Ordered Result Body Site BICILLIN LA/PENICILLIN G BENZATHINE September 15, 2018 THER/PROPH/DIAG INJ, SC/IM September 15, 2018 TORADOL (IM) 60 MG/2ML (UP TO 15 MG) September 15, 2018 INFLUENZA ASSAY W/OPTIC September 15, 2018 STREP A ASSAY W/OPTIC September 15, 2018 INSTRUCTIONS MEDICATIONS ADMINISTERED No Known Medications MEDICAL (GENERAL) HISTORY Type Description Date Medical History Depression Surgical History Exploratory cervical 2013 Hospitalization History childbirth only Hospitalization History 07/2017 ER for fall
--- OUTSIDE RECORDS SUMMARY | 2019-10-12 19:27 | XMS REPORT ---
Author Author Janae MIKE [facility] [address] [place] [address] Care Team Providers Care Sales Coordinator Name Role Phone AUDIE MIKE Unavailable PROBLEMS Type Condition ICD9-CM Code [id number] Code Onset Dates Condition S tatus SNOMED Code Problem Cervical motion tenderness N94.9 Act elias 726125557 Problem Abnormal uterine bleeding N93.9 Acti ve [id number] Problem Post depression F53 Active 39816391 Problem Anxiety F41.9 Active 67728931 ALLERGIES No Information ENCOUNTERS Encounter Location Date Diagnosis [facility] [address] [address] Jul, IUD (intrauterine device) in place Z97.5 and Abnormal uterine bleeding N93.9 [facility] [address] [address] Jul, IUD (intrauterine device) in place Z97.5 and Abnormal uterine bleeding N93.9 [address] [id number] Jul, Well woman exam with routine gynecologic al exam Z01.419 ; Breast cancer screening Z12.39 ; Cervical motion tenderness N94.9 ; Screen for STD (sexually transmitted disease) Z11.3 ; Pelvic pain R10.2 ; IUD (intrauterine device) in place Z97.5 and Abnormal uterine bleeding N93.[address] [place] [id number] Apr, Encounter for immunization Z23 [address] [address] Jan, Cellulitis of left leg L03.[address], [place] [id number] Dec, [facility] [address] [address] [id number] [place] [id number] Dec, [facility] [address] [id number] [place] [id number] Dec, Infected insect bite or sting W57.XXXA [facility] [address] [id number] [place] [id number] Sep, Strep throat J02.0 [facility] [address] [facility] [id number] [place] [address] Jan, [facility] [place] [id number] [place] [address] Jan, Nipple pain N64.4 [facility] [address] [id number] [place] [address] Oct, Strep throat J02.0 [facility] [address] [id number] [place] [id number] Aug, Acute midline thoracic back pain M54.6 [facility] [address] [id number] [place] [id number] Jul, Acute low back pain without sciatica, un specified back pain laterality M54.5 [facility] [address] [id number] [place] [address] Jul, Gastroenteritis K52.9 [facility] [place] [address] [id number] Feb, [facility] [address] [id number] Feb, [facility] [address] [id number] Feb, [facility] [address] [id number] Dec, [facility] [address] [id number] Dec, [facility] [address] [id number] [place] [address] Oct, Strep sore throat J02.0 and Fever, unspe cified fever cause R50.9 [facility] [address] [id number] [place] [id number] Oct, [place] [id number] [place] [id number] Aug, [address] [id number] [place] [address] Jul, UTI symptoms R39.[address] [id number] [place] [address] Jun, Acute non-recurrent maxillary sinusitis J01.00 and Anxiety F41.9 [place] [id number] [place] [id number] Jun, [address] [id number] Apr, [address] [id number] [place] [address] Apr, Breast pain, right N64.4 [facility] [address] [id number] [place] [id number] Mar, problem Z91.89 and Breast pain, right N64.4 [facility] [address] [facility] [address] [id number] [place] [address] Dec, Post depression F53 and Anxiety F 41.9 [facility] [address] [facility] [address] [id number] [place] [address] Oct, OME (otitis media with effusion) H65.90 ; Dizziness R42 and Post depression F53 [facility] [address] [id number] [place] [address] Oct, Post depression F53 and Overweigh t E66.3 [facility] [address] [id number] [place] [address] Oct, Post depression F53 ; Overweight E66.3 ; Breast feeding status of mother Z39.1 and Otitis externa of both ears H60.93 [facility] [address] [id number] [place] [address] Oct, [facility] [address] [facility] [id number] [id number] Oct, Otitis externa H60.90 and Vertigo R42 [facility] [address] [facility]757[place] [id number] May, [facility] [id number] [place] [id number] Apr, [facility] [address]757[place] [address] Apr, [facility] [address] [address] Oct, [facility] [address] [address] Oct, [facility] [address] [address] Mar, [facility] [address] [address] Mar, [facility] [address] [address] Mar, [facility] [address] [address] Mar, [facility] [address] [address] November, [facility] [address] [address] November, [facility] [address] [address] November, [facility] [address] [address] November, [facility] [address] [address] November, [facility] [address] [address] November, [facility] [address] [facility] [id number] [place] [address] November, IMMUNIZATIONS No Known Immunizations SOCIAL HISTORY Never Assessed REASON FOR VISIT PLAN OF CARE VITAL SIGNS MEDICATIONS Unknown Medications RESULTS No Results PROCEDURES No Known procedures INSTRUCTIONS MEDICATIONS ADMINISTERED No Known Medications MEDICAL (GENERAL) HISTORY Type Description Date Medical History Depression Surgical History Exploratory cervical 2013 Hospitalization History childbirth only Hospitalization History 07/2017 ER for fall
--- OUTSIDE RECORDS SUMMARY | 2019-10-12 19:27 | XMS REPORT ---
Author Author Janae CASANOVA [facility] Address [address] [place] [address] Care Team Providers Care Real Estate Services Coordinator Name Role Phone BRITTANY CASANOVA Unavailable PROBLEMS Type Condition ICD9-CM Code UIG17-AU Code Onset Dates Condition S tatus SNOMED Code Problem Post depression F53 Active 83889142 Problem Anxiety F41.9 Active 86410404 ALLERGIES No Information ENCOUNTERS Encounter Location Date Diagnosis [facility] [place] [address] [id number] [place] [id number] Jan, Cellulitis of left leg L03.116 [facility] [address] [place] [id number] Dec, [facility] [address] [id number] [id number] Dec, [facility] [address] [id number] [place] [id number] Dec, Infected insect bite or sting W57.XXXA [facility] [id number], [place] [id number] Sep, Strep throat J02.0 [facility] [address] [facility] [id number] [address] [place] [address] Jan, [facility] [address] [id number], [place] [id number] Jan, Nipple pain N64.4 [facility] [address] [id number] [id number] Oct, Strep throat J02.0 [facility] [address] [id number] [place] [address] [id number] Aug, Acute midline thoracic back pain M54.6 [facility] [id number] [place] [id number] Jul, Acute low back pain without sciatica, un specified back pain laterality M54.5 [facility] [address] [id number] [place] [id number] Jul, Gastroenteritis K52.9 [facility] [place] [address] [id number] [place] [id number] Feb, [facility] [place] [address] [id number] [place] [id number] Feb, [facility] [place] [address] [id number] [place] [id number] Feb, [facility] [place] [address] [id number] [place] [id number] Dec, [facility] [place] [address] [id number] [place] [id number] Dec, [facility] [address] [id number], [place] 884[address]861 Oct, Strep sore throat J02.0 and Fever, unspe cified fever cause R50.9 [facility] [address] [id number] M[facility]AL [facility] [place] [place] [id number] Oct, [facility] [place] [address] [id number] [place] [id number] Aug, [facility] [address] [id number], [place] [address]79843460 Jul, UTI symptoms R39.9 [facility] [address] [id number], [place] [id number] Jun, Acute non-recurrent maxillary sinusitis J01.00 and Anxiety F41.9 [facility] [place] [address] [id number] [place] [id number] Jun, [facility] [place] [address] [id number] [place] [id number] Apr, [facility] [address] [id number], [place] [id number] Apr, Breast pain, right N64.4 [facility] [address] [id number], [place] [id number] Mar, problem Z91.89 and Breast pain, right N64.4 [facility] [address] [id number], [place] [id number] Dec, Post depression F53 and Anxiety F 41.9 [facility] [address] [id number], [place] [id number] Oct, OME (otitis media with effusion) H65.90 ; Dizziness R42 and Post depression F53 [facility] [address] [id number], [place] [id number] Oct, Post depression F53 and Overweigh t E66.3 [facility] [address] [facility] [address] [id number], [place] [id number] Oct, Post depression F53 ; Overweight E66.3 ; Breast feeding status of mother Z39.1 and Otitis externa of both ears H60.93 [facility] [address] [address] Oct, [facility] [address] [id number], [place] 8[address] Oct, Otitis externa H60.90 and Vertigo R42 [facility] [place] [address] [id number] [place] [id number] May, [facility] [address] [facility] [id number] [place] [id number] Apr, [facility] [place] 120 [facility] [id number] [place], [place] [id number] Apr, [facility] [address] [id number] [address] [place] [address] Oct, [facility] [address] [address] Oct, [facility] [address] [id number] [address] [place] [address] Mar, [facility] [address] [id number] [address] [place] [address] Mar, [facility] [address] [id number] [address] [place] [address] Mar, [facility] [address] [id number] [address] [place] [address] Mar, [facility] [address] [id number] [address] [place] [address] November, [facility] [address] [id number] [address] [place] [address] November, [facility] [address] [id number] [address] [place] [address] November, [facility] [address] [id number] [address] [place] [address] November, [facility] [address] [id number] [address] [place] [address] November, [facility] [address] [id number] [address] [place] [address] November, [facility] [address] [id number] [address] [place] [address] November, IMMUNIZATIONS No Known Immunizations SOCIAL HISTORY Never Assessed REASON FOR VISIT PLAN OF CARE VITAL SIGNS Height 69.5 in 2014-04-03 Weight 190 lbs 2014-04-03 Temperature 99.2 degrees Fahrenheit 2014-04-03 Heart Rate 78 bpm 2014-04-03 Respiratory Rate 18 2014-04-03 Blood pressure systolic 120 mmHg 2014-04-03 Blood pressure diastolic 60 mmHg 2014-04-03 MEDICATIONS No Known Medications RESULTS No Results PROCEDURES No Known procedures INSTRUCTIONS MEDICATIONS ADMINISTERED No Known Medications MEDICAL (GENERAL) HISTORY Type Description Date Medical History Depression Surgical History Exploratory cervical 2013 Hospitalization History childbirth only Hospitalization History 07/2017 ER for fall
--- OUTSIDE RECORDS SUMMARY | 2019-10-12 19:28 | XMS REPORT ---
Author Author Janae MIKE Organization [facility] Address [address] [place] [address] Care Team Providers Care Claim Clerk Name Role Phone AUDIE MIKE Unavailable PROBLEMS Type Condition ICD9-CM Code [id number] Code Onset Dates Condition S tatus SNOMED Code Problem Acute midline thoracic back pain M54.6 Active 986210406 Problem Anxiety F41.9 Active 55297167 Problem Post depression F53 Active 46989336 ALLERGIES Substance Reaction Event Type Date Status Tramadol HCl anaphylaxis Drug Allergy Jul, Active betadine rash Non Drug Allergy Jul, Active ENCOUNTERS Encounter Location Date Diagnosis [facility] [address] [facility] [id number] [place] [id number] Oct, Strep throat J02.[address] [id number] [place] [id number] Aug, Acute midline thoracic back pain M54.6 [place] [address] [facility] [id number] [place] [id number] Jul, Acute low back pain without sciatica, un specified back pain laterality M54.5 [facility] [place] [address] [facility] [address] [id number] [place] [id number] Jul, Gastroenteritis K52.9 [facility] [place] [address] [id number] [place] [id number] Feb, [facility] [place] [address] [id number] [place] [phone] Feb, [facility] [place] [address] [id number] [place] [id number] Feb, [facility] [place] [address] [id number] [place] [phone] Dec, [facility] [place] [address] [id number] [place] [id number] Dec, [facility] [address] [id number] [place] [id number] Oct, Strep sore throat J02.0 and Fever, unspe cified fever cause R50.9 [facility] [address] [id number] [id number] Oct, [facility] [place] [address] [id number] [place] [id number] Aug, [facility] [address] [id number] [place] [id number] Jul, UTI symptoms R39.9 [facility] [address] [id number] [id number] Jun, Acute non-recurrent maxillary sinusitis J01.00 and Anxiety F41.9 [facility] [place] [address] [id number] [place] [phone] Jun, [facility] [place] [address] [id number] [place] [id number] Apr, [facility] [address] [id number] [place] [id number] Apr, Breast pain, right N64.4 [facility] [address] [id number] [place] [id number] Mar, problem Z91.89 and Breast pain, right N64.4 [facility] [address] [id number] [place] [id number] Dec, Post depression F53 and Anxiety F 41.9 [facility] [address] [id number] [place] [id number] Oct, OME (otitis media with effusion) H65.90 ; Dizziness R42 and Post depression F53 [facility] [address] [id number] [place] [id number] Oct, Post depression F53 and Overweigh t E66.3 [facility] [address] [id number] [place] [id number] Oct, Post depression F53 ; Overweight E66.3 ; Breast feeding status of mother Z39.1 and Otitis externa of both ears H60.93 [facility] [address] [id number] [address] [place] [phone] Oct, [facility] [address] [id number] [place]ACH[place] [id number] Oct, Otitis externa H60.90 and Vertigo R42 [facility] [address] [id number] [place] [id number] May, [facility] [address] [id number] [place] [id number] Apr, [facility] [address] [id number] [place] [phone] Apr, [facility] [address] [id number] [address] [place] [phone] Oct, [facility] [address] [facility] [id number] [address] [place] [phone] Oct, [facility] [address] [facility] [id number] [address] [place] [phone] Mar, [facility] [address] [facility] [id number] [address] [place] [phone] Mar, [facility] [address] [facility] [id number] [address] [place] [phone] Mar, [facility] [address] [facility] [id number] [address] [place] [phone] Mar, [facility] [address] [facility] [id number] [address] [place] [phone] November, [facility] [address] [facility] [id number] [address] [place] [phone] November, [facility] [address] [facility] [id number] [address] [place] [address] November, [facility] [address] [facility] [id number] [address] [place] [phone] November, [facility] [address] [facility] [id number] [address] [place] [phone] November, [facility] [address] [facility] [id number] [address] [place] [phone] November, [facility] [address] [facility] [id number] [address] [place] [phone] November, IMMUNIZATIONS No Known Immunizations SOCIAL HISTORY Never Assessed REASON FOR VISIT 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 PLAN OF CARE Activity Details Follow Up prn Reason: VITAL SIGNS Height 69.5 in 2017-07-22 Weight 197.7 lbs 2017-07-22 Temperature 97.1 degrees Fahrenheit 2017-07-22 Heart Rate 102 bpm 2017-07-22 Respiratory Rate 18 2017-07-22 Oximetry 97 % 2017-07-22 BMI 28.77 kg/m2 2017-07-22 Blood pressure systolic 104 mmHg 2017-07-22 Blood pressure diastolic 72 mmHg 2017-07-22 MEDICATIONS Medication Instructions Dosage Frequency Start Date End Date Duration S tatus Cetirizine HCl 10 MG Orally Once a day 1 tablet as needed 24h Not-Taking Acidophilus 100 mg Orally 2 times a day 1 capsule 12h 12 Jul, 18 Jul, 07 days Active Not-Taking BusPIRone HCl 10 mg Orally Twice a day NEEDED FOR ANXIETY 1 tabl et Dec, Not-Taking Zofran 8 MG Orally every 8 hours for nausea 1 tablet Jul, 8 07 days Active Flonase Allergy Relief 50 MCG/ACT Nasally Once a day 1 spray in each nostril 24h Not-Taking RESULTS No Results PROCEDURES No Known procedures INSTRUCTIONS MEDICATIONS ADMINISTERED No Known Medications MEDICAL (GENERAL) HISTORY Type Description Date Medical History Depression Surgical History Exploratory cervical 2014 Hospitalization History childbirth only Hospitalization History 07/2017 ER for fall
--- OUTSIDE RECORDS SUMMARY | 2019-10-12 19:28 | XMS REPORT ---
Author Janae Alvarado Organization [employer] Address Unknown Phone Unavailable Care Team Providers Care Industrial Editor Name Role Phone AUDIE MIKE CP Unavailable Allergies No Known Allergies Problems Problem Type Condition Code Onset Dates Condition Statu s Problem Anxiety F41.9 Active Assessment Breast pain, right N64.4 Active Problem Post depression F53 Activ e Medications No Known Medications Results No Known Results Summary Purpose [employer] Submission
--- OUTSIDE RECORDS SUMMARY | 2019-10-12 19:28 | XMS REPORT ---
Author Author Janae MIKE [facility] Address [address] [place] [address] Care Team Providers Care Service Order Expediter Name Role Phone AUDIE MIKE Unavailable PROBLEMS Type Condition ICD9-CM Code OSZ71-RS Code Onset Dates Condition S tatus SNOMED Code Problem Anxiety F41.9 Active 08110269 Problem Post depression F53 Active 45874119 ALLERGIES No Information SOCIAL HISTORY Never Assessed PLAN OF CARE VITAL SIGNS MEDICATIONS Unknown Medications RESULTS No Results PROCEDURES No Known procedures IMMUNIZATIONS No Known Immunizations MEDICAL (GENERAL) HISTORY Type Description Date Medical History Depression Surgical History Exploratory cervical 2014 Hospitalization History childbirth only
--- OUTSIDE RECORDS SUMMARY | 2019-10-12 19:28 | XMS REPORT ---
Author Author Janae MIKE [facility] Address [address] [place] [address] Care Team Providers Care Shared Services Manager Name Role Phone AUDIE MIKE Unavailable PROBLEMS Type Condition ICD9-CM Code SNL06-MV Code Onset Dates Condition S tatus SNOMED Code Problem Anxiety F41.9 Active 41274953 Problem Post depression F53 Active 92334908 ALLERGIES No Information SOCIAL HISTORY Never Assessed PLAN OF CARE VITAL SIGNS MEDICATIONS Unknown Medications RESULTS No Results PROCEDURES No Known procedures IMMUNIZATIONS No Known Immunizations MEDICAL (GENERAL) HISTORY Type Description Date Medical History Depression Surgical History Exploratory cervical 2014 Hospitalization History childbirth only
--- OUTSIDE RECORDS SUMMARY | 2019-10-12 19:28 | XMS REPORT ---
Author Author Janae CASANOVA Organization [facility] Address [address] [place] [address] Care Team Providers Care Financial Planning Assistant Name Role Phone BRITTANY CASANOVA Unavailable PROBLEMS Type Condition ICD9-CM Code [id number] Code Onset Dates Condition S tatus SNOMED Code Problem Nipple pain N64.4 Active 97377713 3 Problem Acute midline thoracic back pain M54.6 Active 487291692 Problem Anxiety F41.9 Active 64953897 Problem Post depression F53 Active 63671270 ALLERGIES No Information ENCOUNTERS Encounter Location Date Diagnosis [facility] [address] [id number] 100[place] [address] Jan, [place] [address] [facility] [address] [id number][place] [id number] Jan, Nipple pain N64.[address] [id number], [place] [id number] Oct, Strep throat J02.[address] [id number], [place] [id number] Aug, Acute midline thoracic back pain M54.[address] [id number][place] [id number] Jul, Acute low back pain without sciatica, un specified back pain laterality M54.5 [facility] [address] [facility] [address] [id number][place] [id number] Jul, Gastroenteritis K52.9 [facility] [address] [id number] [place] [id number] Feb, [facility] [address] [id number] [place] [id number] Feb, [facility] [address] [id number] [place] [id number] Feb, [facility] [place] [address] [id number] [place] [id number] Dec, [facility] [place] [address] [id number] [place] [id number] Dec, [facility] [address] [id number] [place] [id number] Oct, Strep sore throat J02.0 and Fever, unspe cified fever cause R50.9 [facility] [address] [id number] [facility] [place] [id number] Oct, [facility] [place] [address] [id number] [place] [id number] Aug, [facility] [address] [id number] [id number] Jul, UTI symptoms R39.9 [facility] [address] [id number] [facility] [id number] Jun, Acute non-recurrent maxillary sinusitis J01.00 and Anxiety F41.9 [facility] [place] [address] [id number] [place] [id number] Jun, [facility] [place] [address] [id number] [place] [id number] Apr, [facility] [address] [id number] [facility] [id number] Apr, Breast pain, right N64.4 [facility] [address] [id number] [facility] [id number] Mar, problem Z91.89 and Breast pain, right N64.4 [facility] [address] [id number] [facility] [id number] Dec, Post depression F53 and Anxiety F 41.9 [facility] [address] [id number] [facility] [id number] Oct, OME (otitis media with effusion) H65.90 ; Dizziness R42 and Post depression F53 [facility] [address] [id number][place] [id number] Oct, Post depression F53 and Overweigh t E66.3 [facility] [address] [id number][place] [id number] Oct, Post depression F53 ; Overweight E66.3 ; Breast feeding status of mother Z39.1 and Otitis externa of both ears H60.93 [facility] [address] [facility] [id number] [address] [place] [phone] Oct, [facility] [address] [id number][place] [id number] Oct, Otitis externa H60.90 and Vertigo R42 [facility] [place] [address] [id number] [place] [id number] May, [facility] [place] [address] [id number] [place] [id number] Apr, [facility] [place] [address] [id number] [place] [id number] Apr, [facility] [address] [facility] [id number] [address] [place] [phone] Oct, [facility] [address] [facility] [id number] [address] [place] [phone] Oct, [facility] [address] [facility] [id number] [address] [place] [phone] Mar, [facility] [address] [facility] [id number] [address] [place] [phone] Mar, [facility] [address] [place] [id number] [address] [place] [address] Mar, [facility] [address] [facility] [id number] [address] [place] [phone] Mar, [facility] [address] [place] [id number] [address] [place] [phone] November, [facility] [address] [facility] [id number] [address] [place] [phone] November, [facility] [address] [facility] [id number] [address] [place] [phone] November, [facility] [address] [facility] [id number] [address] [place] [phone] November, [facility] [address] [facility] [id number] [address] [place] [phone] November, [facility] [address] [facility] [id number] [address] [place] [phone] November, [facility] [address] [facility] [id number] [address] [place] [phone] November, IMMUNIZATIONS No Known Immunizations SOCIAL HISTORY Never Assessed REASON FOR VISIT Medication question PLAN OF CARE VITAL SIGNS MEDICATIONS Unknown Medications RESULTS No Results PROCEDURES No Known procedures INSTRUCTIONS MEDICATIONS ADMINISTERED No Known Medications MEDICAL (GENERAL) HISTORY Type Description Date Medical History Depression Surgical History Exploratory cervical 2013 Hospitalization History childbirth only Hospitalization History 07/2017 ER for fall
--- OUTSIDE RECORDS SUMMARY | 2019-10-12 19:28 | XMS REPORT ---
Author Author Janae MIKE Organization [facility] Address [address] [place] [address] Care Team Providers Care Tooling Engineering Tech Name Role Phone AUDIE MIKE Unavailable PROBLEMS Type Condition ICD9-CM Code AUV00-RJ Code Onset Dates Condition S tatus SNOMED Code Problem Acute midline thoracic back pain M54.6 Active 853247176 Problem Anxiety F41.9 Active 78961232 Problem Post depression F53 Active 56756158 ALLERGIES No Information ENCOUNTERS Encounter Location Date Diagnosis [facility] [address] [facility] [id number], [place] [id number] Oct, Strep throat J02.0 [facility] [place] [address] [facility] [id number], [place] [id number] Aug, Acute midline thoracic back pain M54.6 [facility] [place] [address] [facility] [id number], [place] [id number] Jul, Acute low back pain without sciatica, un specified back pain laterality M54.5 [facility] [place] [address] [facility] [id number], [place] [id number] Jul, Gastroenteritis K52.9 [facility] [place] [address] [id number] [place] [id number] Feb, [facility] [place] [address] [id number] [place] [id number] Feb, [facility] [place] [address] [id number] [place] [id number] Feb, [facility] [place] [address] [id number] [place] [id number] Dec, [facility] [place] [address] [id number] [place] [id number] Dec, [facility] [address] [id number], [place] [id number] Oct, Strep sore throat J02.0 and Fever, unspe cified fever cause R50.9 [facility] [address] [id number] [place] [id number] Oct, [facility] [place] [address] [id number] [place] [id number] Aug, [facility] [address] [id number], [place] [id number] Jul, UTI symptoms R39.9 [facility] [address] [id number], [place] [id number] Jun, Acute non-recurrent maxillary sinusitis J01.00 and Anxiety F41.9 [facility] [place] [address] [id number] [place] [id number] Jun, [facility] [place] [address] [id number] [place] [id number] Apr, [facility] [id number], [place] [id number] Apr, Breast pain, right N64.4 [facility] [address] [id number], [place] [id number] Mar, problem Z91.89 and Breast pain, right N64.4 [facility] [address] [id number], [place] [id number] Dec, Post depression F53 and Anxiety F 41.9 [facility] [address] [id number], [place] [id number] Oct, OME (otitis media with effusion) H65.90 ; Dizziness R42 and Post depression F53 [facility] [address] [id number], [place] [id number] Oct, Post depression F53 and Overweigh t E66.3 [facility] [address] [id number], [place] [id number] Oct, Post depression F53 ; Overweight E66.3 ; Breast feeding status of mother Z39.1 and Otitis externa of both ears H60.93 [facility] [address] [facility] [id number] [address] [place] [address] Oct, [facility] [address] [id number], [place] [id number] Oct, Otitis externa H60.90 and Vertigo R42 [facility] [place] [address] [id number] [place] [id number] May, [facility] [place] [address] [id number] [place] [id number] Apr, [facility] [place] [address] [facility] [id number] [place] [id number] Apr, [facility] [address] [facility] [id number] [address] [place] [phone] Oct, [facility] [address] [facility] [id number] [address] [place] [phone] Oct, [facility] [address] [facility] [id number] [address] [place] [phone] Mar, [facility] [address] [facility] [id number] [address] [place] [phone] Mar, [facility] [address] [facility] [id number] [address] [place] [phone] Mar, [facility] [address] [facility] [id number] [address] [place] [phone] Mar, [facility] [address] [facility] [id number] [address] [place] [phone] November, [facility] [address] [facility] [id number] [address] [place] [phone] November, [facility] [address] [facility] [id number] [address] [place] [phone] November, [facility] [address] [facility] [id number] [address] [place] [phone] November, [facility] [address] [facility] [id number] [address] [place] [phone] November, [facility] [address] [facility] [id number] [address] [place] [phone] November, [facility] [address] [facility] [id number] [address] [place] [phone] November, IMMUNIZATIONS No Known Immunizations SOCIAL HISTORY Never Assessed REASON FOR VISIT ER f/u PLAN OF CARE VITAL SIGNS MEDICATIONS Medication Instructions Dosage Frequency Start Date End Date Duration S tatus PredniSONE 20 mg Orally Once a day 2 tablets 24h Jul, Jul, 5 days Active RESULTS No Results PROCEDURES No Known procedures INSTRUCTIONS MEDICATIONS ADMINISTERED No Known Medications MEDICAL (GENERAL) HISTORY Type Description Date Medical History Depression Surgical History Exploratory cervical 2013 Hospitalization History childbirth only Hospitalization History 07/2017 ER for fall
--- OUTSIDE RECORDS SUMMARY | 2019-10-12 19:28 | XMS REPORT ---
Author Author Janae CASANOVA Organization [facility] Address [address] [place] [address] Care Team Providers Care Collator Name Role Phone BRITTANY CASANOVA Unavailable PROBLEMS Type Condition ICD9-CM Code [id number] Code Onset Dates Condition S tatus SNOMED Code Problem Acute midline thoracic back pain M54.6 Active 096779625 Problem Anxiety F41.9 Active 24932454 Problem Post depression F53 Active 16586057 ALLERGIES No Information ENCOUNTERS Encounter Location Date Diagnosis [place] [address] [facility] [id number] [id number] Aug, Acute midline thoracic back pain M54.[address] [id number], [place] [id number] Jul, Acute low back pain without sciatica, un specified back pain laterality M54.5 [facility] [place] [address] [facility] [address] [address] [id number][place] [id number] Jul, Gastroenteritis K52.9 [facility] [place] [address] [id number] [place] [id number] Feb, [facility] [place] [address] [id number] [place] [id number] Feb, [facility] [place] [address] [id number] [place] [id number] Feb, [facility] [place] [address] [id number] [place] [id number] Dec, [facility] [place] [address] [id number] [place] [id number] Dec, [facility] [address] [facility] [address] [address] [id number], [place] [id number] Oct, Strep sore throat J02.0 and Fever, unspe cified fever cause R50.9 [facility] [address] [id number] [place] [id number] Oct, [facility] [place] [address] [id number] [place] [id number] Aug, [facility] [address] [id number], [place] [id number] Jul, UTI symptoms R39.9 [facility] [address] [id number], [place] [id number] Jun, Acute non-recurrent maxillary sinusitis J01.00 and Anxiety F41.9 [facility] [place] [address] [id number] [place] [id number] Jun, [facility] [place] [address] [id number] [place] [id number] Apr, [facility] [address] [id number], [place] [id number] Apr, Breast pain, right N64.4 [facility] [address] [id number], [place] [id number] Mar, problem Z91.89 and Breast pain, right N64.4 [facility] [address] [id number], [place] [id number] Dec, Post depression F53 and Anxiety F 41.9 [facility] [place] [address] [facility] [address] [id number], [place] [phone] Oct, OME (otitis media with effusion) H65.90 ; Dizziness R42 and Post depression F53 [facility] [address] [id number], [place] [id number] Oct, Post depression F53 and Overweigh t E66.3 [facility] [address] [id number], [place] [id number] Oct, Post depression F53 ; Overweight E66.3 ; Breast feeding status of mother Z39.1 and Otitis externa of both ears H60.93 [facility] [address] [id number] [address] [place] [phone] Oct, [facility] Rojas [facility] [id number], [place] [id number] Oct, Otitis externa H60.90 and Vertigo R42 [facility] [place] [address] [id number] [place] [id number] May, [facility] [place] [address] [id number] [place] [id number] Apr, [facility] [place] [address] [id number] [place] [id number] Apr, [facility] [address] [id number] [address] [place] [phone] Oct, [facility] [address] [facility] [id number] [address] [place] [phone] Oct, [facility] [address] [id number] [address] [place] [phone] Mar, [facility] [address] [id number] [address] [place] [phone] Mar, [facility] [address] [facility] [id number] [address] [place] [phone] Mar, [facility] [address] [facility] [id number] [address] [place] [phone] Mar, [facility] [address] [id number] [address] [place] [phone] November, [facility] [address] [facility] [id number] [address] [place] [phone] November, [facility] [address] [facility] [id number] [address] [place] [phone] November, [facility] [address] [facility] [id number] [address] [place] [phone] November, [facility] [address] [id number] [address] [place] [phone] November, [facility] [address] [facility] [id number] [address] [place] [phone] November, [facility] [address] [facility] [id number] [address] [place] [phone] November, IMMUNIZATIONS No Known Immunizations SOCIAL HISTORY Never Assessed REASON FOR VISIT PLAN OF CARE VITAL SIGNS MEDICATIONS No Known Medications RESULTS No Results PROCEDURES No Known procedures INSTRUCTIONS MEDICATIONS ADMINISTERED No Known Medications MEDICAL (GENERAL) HISTORY Type Description Date Medical History Depression Surgical History Exploratory cervical 2013 Hospitalization History childbirth only Hospitalization History 07/2017 ER for fall
--- OUTSIDE RECORDS SUMMARY | 2019-10-12 19:28 | XMS REPORT ---
Author Janae Alvarado [facility] eClinicalWorks Address Unknown Phone Unavailable Care Team Providers Care Hand Packer Name Role Phone AUDIE MIKE CP Unavailable [...]
--- OUTSIDE RECORDS SUMMARY | 2019-10-12 19:28 | XMS REPORT ---
Author Author Janae CASANOVA Organization [facility] Address [address] [place] [address] Care Team Providers Care Men'S Leather Dress Belt Maker Name Role Phone BRITTANY CASANOVA Unavailable PROBLEMS Type Condition ICD9-CM Code UKI46-FV Code Onset Dates Condition S tatus SNOMED Code Problem Nipple pain N64.4 Active 45997074 3 Problem Acute midline thoracic back pain M54.6 Active 067887339 Problem Anxiety F41.9 Active 79930177 Problem Post depression F53 Active 31483655 ALLERGIES Substance Reaction Event Type Date Status Tramadol HCl anaphylaxis Drug Allergy Oct, Active betadine rash Non Drug Allergy Oct, Active ENCOUNTERS Encounter Location Date Diagnosis [facility] [address] [facility] [id number] [place] [address] Jan, [facility] [address] [id number] [id number] Jan, Nipple pain N64.4 [facility] [address] [facility] [address] [id number], [place] [id number] Oct, Strep throat J02.0 [facility] [address] [facility] [id number], [place] [id number] 14 Aug, 2017 Acute midline thoracic back pain M54.6 [facility] [address] [facility] [id number], [place] [id number] Jul, Acute low back pain without sciatica, un specified back pain laterality M54.5 [facility] [address] [id number], [place] [id number] Jul, Gastroenteritis K52.9 [facility] [address] [id number] [place] [id number] Feb, [facility] [address] [id number] [place] [id number] Feb, [facility] [place] [address] [id number] [place] [id number] Feb, [facility] [place] [address] [id number] [place] [id number] Dec, [facility] [place] [address] [id number] [place] [id number] Dec, [facility] [address] [id number] [place] [id number] Oct, Strep sore throat J02.0 and Fever, unspe cified fever cause R50.9 [facility] [address] [id number] [place] [id number] Oct, [facility] [place] [address] [id number] [place] [phone] Aug, [facility] [address] [id number] [place] [id number] Jul, UTI symptoms R39.9 [facility] [address] [id number] [place] [id number] Jun, Acute non-recurrent maxillary sinusitis J01.00 and Anxiety F41.9 [facility] [place] [address] [id number] [place] [id number] Jun, [facility] [place] [address] [id number] [place] [phone] Apr, [facility] [address] [id number] [place] [id number] Apr, Breast pain, right N64.4 [facility] [address] [id number] [place] [id number] Mar, problem Z91.89 and Breast pain, right N64.4 [facility] [address] [id number] [place] [id number] Dec, Post depression F53 and Anxiety F 41.9 [facility] [address] [id number], [place] [id number] Oct, OME (otitis media with effusion) H65.90 ; Dizziness R42 and Post depression F53 [facility] [address] [id number], [place] 559879443 Oct, Post depression F53 and Overweigh t E66.3 [facility] [place] [address] [facility] [address] [id number], [place] [id number] Oct, Post depression F53 ; Overweight E66.3 ; Breast feeding status of mother Z39.1 and Otitis externa of both ears H60.93 [facility] [address] [facility] [id number] [address] [place] [phone] Oct, [facility] [place] [address] [facility] [address] [id number], [place] [id number] Oct, Otitis externa H60.90 and Vertigo R42 [facility] [place] [address] [id number] [place] [id number] May, [facility] [place] [address] [id number] [place] [id number] Apr, [facility] [place] [address] [facility] [address] [id number] [place] [id number] Apr, [facility] [address] [facility] [id number] [address] [place] [phone] Oct, [facility] [address] [facility] [id number] [address] [place] [phone] Oct, [facility] [address] [facility] [id number] [address] [place] [phone] Mar, [facility] [address] [facility] [id number] [address] [place] [phone] Mar, [facility] [address] [place] [id number] [address] [place] [phone] Mar, [facility] [address] [facility] [id number] [address] [place] [phone] Mar, [facility] [address] [id number] [address] [place] [phone] November, [facility] [address] [id number] [address] [place] [phone] November, [facility] [address] [id number] [address] [place] [phone] November, [facility] [address] [id number] [address] [place] [phone] November, [facility] [address] [id number] [address] [place] [phone] November, [facility] [address] [id number] [address] [place] [phone] November, [facility] [address] [id number] [address] [place] [phone] November, IMMUNIZATIONS Vaccine Route Administration Date Status BICILLIN C-R IM Intramuscular October 27, 2017 Administered SOCIAL HISTORY Never Assessed REASON FOR VISIT Headache/Dizziness for several days off and on. Woke up this am with sore throat . bferrisma PLAN OF CARE Activity Details Follow Up prn Reason: VITAL SIGNS Height 69.5 in 2017-10-27 Weight 201.3 lbs 2017-10-27 Temperature 100.8 degrees Fahrenheit 2017-10-27 Heart Rate 110 bpm 2017-10-27 Respiratory Rate 18 2017-10-27 BMI 29.30 kg/m2 2017-10-27 Blood pressure systolic 146 mmHg 2017-10-27 Blood pressure diastolic 88 mmHg 2017-10-27 MEDICATIONS Medication Instructions Dosage Frequency Start Date End Date Duration S tatus [place] 5-325 MG Orally 3 times a day 1 tablet as needed with food for severe pain only 8h Aug, Not-Taking Amoxicillin 500 mg Orally every 8 hrs 1 capsule 8h Oct, Oct, 10 day(s) Active RESULTS Name Result Date Reference Range STREP A (IN HOUSE) 2017-10-27 STREP A POSITIVE Control POSITIVE Lot # [id number] Exp date 03/2020 PROCEDURES Procedure Date Ordered Result Body Site STREP A ASSAY W/OPTIC October 27, 2017 THER/PROPH/DIAG INJ, SC/IM October 27, 2017 INJECTION PCN G ROYER [id number] UNITS October 27, 2017 INSTRUCTIONS MEDICATIONS ADMINISTERED No Known Medications MEDICAL (GENERAL) HISTORY Type Description Date Medical History Depression Surgical History Exploratory cervical 2013 Hospitalization History childbirth only Hospitalization History 07/2017 ER for fall
--- OUTSIDE RECORDS SUMMARY | 2019-10-12 19:28 | XMS REPORT ---
Author Author Janae MIKE [facility] Address [address] [place] [address] Care Team Providers Care Rn Practitioner Name Role Phone AUDIE MIKE Unavailable PROBLEMS Type Condition ICD9-CM Code KCE55-ZO Code Onset Dates Condition S tatus SNOMED Code Problem Post depression F53 Active 22428565 Problem Anxiety F41.9 Active 29885501 ALLERGIES Unknown Allergies SOCIAL HISTORY No smoking Hx information available PLAN OF CARE VITAL SIGNS MEDICATIONS Unknown Medications RESULTS Name Result Date Reference Range UA LONG DIP (IN HOUSE) 2016-07-13 Lot # [id number] Exp date 02/2017 Clarity CLEAR Color YELLOW Odor NONE GLU NEGATIVE LIUDMILA 1+ KET TRACE SG >1.030 BLO 1+ pH 5.5 Protein 2+ URO 0.2 NIT NEGATIVE DUSTIN NEGATIVE Lot # Exp date CULTURE, URINE 2016-07-13 Urine Culture, Routine Final report Result 1 No growth PROCEDURES Procedure Date Ordered Related Diagnosis Body Site URINALYSIS, AUTO, W/O SCOPE Jul 13, 2016 LAB NOT BILLED BY [facility] Jul 13, 2016 IMMUNIZATIONS No Known Immunizations
--- OUTSIDE RECORDS SUMMARY | 2019-10-12 19:28 | XMS REPORT ---
Author Janae Alvarado [facility] eClinicalWorks Address Unknown Phone Unavailable Care Team Providers Care Cut Off Operator Scorer Name Role Phone AUDIE MIKE CP Unavailable [...]
--- OUTSIDE RECORDS SUMMARY | 2019-10-12 19:28 | XMS REPORT ---
Author Author Janae SARAH [facility] Organization eClinicalWorks Address Unknown Phone Unavailable Care Team Providers Care Lease Purchase Driver Name Role Phone CRISTINA SARAH CP Unavailable Allergies No Known Allergies Problems Problem Type Condition Code Onset Dates Condition Statu s Problem Anxiety F41.9 Active Problem Post depression F53 Activ e Medications No Known Medications Results No Known Results Summary Purpose eClinicalWorks Submission
--- OUTSIDE RECORDS SUMMARY | 2019-10-12 19:28 | XMS REPORT ---
Author Author Janae MIKE Organization [facility] Address [address] [place] [address] Care Team Providers Care Manager Client Service Name Role Phone AUDIE MIKE Unavailable PROBLEMS Type Condition ICD9-CM Code LVF66-VH Code Onset Dates Condition S tatus SNOMED Code Problem Acute midline thoracic back pain M54.6 Active 869108059 Problem Anxiety F41.9 Active 75631942 Problem Post depression F53 Active 40027440 ALLERGIES No Information ENCOUNTERS Encounter Location Date Diagnosis [facility] [address] [facility] [address] [id number], [place] [id number] Aug, Acute midline thoracic back pain M54.6 [facility] [address] [id number], [place] [id number] Jul, Acute low back pain without sciatica, un specified back pain laterality M54.5 [facility] [place] [address] [facility] [address] [id number], [place] [id number] Jul, Gastroenteritis K52.9 [facility] [place] [address] [id number] [place] [id number] Feb, [facility] [place] [address] [id number] [place] [id number] Feb, [facility] [place] [address] [id number] [place] [id number] Feb, [facility] [place] [address] [id number] [place] [id number] Dec, [facility] [place] [address] [id number] [place] [id number] Dec, [facility] [address] [id number], [place] [id number] Oct, Strep sore throat J02.0 and Fever, unspe cified fever cause R50.9 [facility] [address] [id number] [place] [id number] Oct, [facility] [place] [address] [id number] [place] [id number] Aug, [facility] [address] [id number], [place] [id number] Jul, UTI symptoms R39.9 [facility] [address] [id number], [place] [id number] Jun, Acute non-recurrent maxillary sinusitis J01.00 and Anxiety F41.9 [facility] [place] [address] [id number] [place] [id number] Jun, [facility] [place] [address] [id number] [place] [id number] Apr, [facility] [address] [id number], [place] [id number] Apr, Breast pain, right N64.4 [facility] [address] [id number], [place] [id number] Mar, problem Z91.89 and Breast pain, right N64.4 [facility] [address] [id number], [place] [id number] Dec, Post depression F53 and Anxiety F 41.9 [facility] [place] [address] [id number], [place] [id number] Oct, OME (otitis media with effusion) H65.90 ; Dizziness R42 and Post depression F53 [facility] [address] [id number], [place] [address]47[address] Oct, Post depression F53 and Overweigh t E66.3 [facility] [address] [id number], [place] 527198590 Oct, Post depression F53 ; Overweight E66.3 ; Breast feeding status of mother Z39.1 and Otitis externa of both ears H60.93 [facility] [address] [id number] [address] [place] [address] Oct, [facility] Rojas [facility] [id number], [place] [id number] Oct, Otitis externa H60.90 and Vertigo R42 [facility] [place] [address] [id number] [place] [id number] May, [facility] [place] [address] [id number] [place] [id number] Apr, [facility] [place] [address] [id number] [place] [id number] Apr, [facility] [address] [id number] [address] [place] [phone] Oct, [facility] [address] [id number] [address] [place] [address] Oct, [facility] [address] [id number] [address] [place] [phone] Mar, [facility] [address] [id number] [address] [place] [phone] Mar, [facility] [address] [id number] [address] [place] [phone] Mar, [facility] [address] [id number] [address] [place] [address] Mar, [facility] [address] [id number] [address] [place] [address] November, [facility] [address] [id number] [address] [place] [phone] November, [facility] [address] [id number] [address] [place] [address] November, [facility] [address] [id number] [address] [place] [phone] November, [facility] [address] [id number] [address] [place] [address] November, [facility] [address] [facility] [id number] [address] [place] [phone] November, [facility] [address] [facility] [id number] [address] [place] [phone] November, IMMUNIZATIONS No Known Immunizations SOCIAL HISTORY [...]
--- OUTSIDE RECORDS SUMMARY | 2019-10-12 19:28 | XMS REPORT ---
Author Author Janae MIKE [facility] Address [address] [place] [address] Care Team Providers Care Manager Health Name Role Phone AUDIE MIKE Unavailable PROBLEMS Type Condition ICD9-CM Code HPF70-SE Code Onset Dates Condition S tatus SNOMED Code Problem Post depression F53 Active 59470442 Problem Anxiety F41.9 Active 90236532 ALLERGIES Substance Reaction Event Type Date Status Tramadol HCl anaphylaxis Drug Allergy Jun, Active betadine rash Non Drug Allergy Jun, Active SOCIAL HISTORY No smoking Hx information available PLAN OF CARE Activity Details Follow Up prn Reason: VITAL SIGNS Height 69.5 in 2016-06-29 Weight 199 lbs 2016-06-29 Temperature 98.3 degrees Fahrenheit 2016-06-29 Heart Rate 68 bpm 2016-06-29 Respiratory Rate 16 2016-06-29 BMI 28.96 kg/m2 2016-06-29 Blood pressure systolic 110 mmHg 2016-06-29 Blood pressure diastolic 80 mmHg 2016-06-29 MEDICATIONS Medication Instructions Dosage Frequency Start Date End Date Duration S tatus Augmentin 875-125 MG Orally every 12 hrs 1 tablet 12h Jun, 2 016 Jun, 10 day(s) Active Flonase Allergy Relief 50 MCG/ACT Nasally Once a day 1 spray in each nostril 24h Active Active BusPIRone HCl 10 mg Orally Twice a day NEEDED FOR ANXIETY 1 tabl et Dec, Active RESULTS No Results PROCEDURES Procedure Date Ordered Related Diagnosis Body Site Office Visit, Est Pt., Level 3 Jun 29, 2016 IMMUNIZATIONS No Known Immunizations
--- OUTSIDE RECORDS SUMMARY | 2019-10-12 19:28 | XMS REPORT ---
Author Author Janae WAYNE [facility] Address [facility] [place] [address] Care Team Providers Care Mandarin Chinese Teacher Name Role Phone KATY WAYNE Unavailable PROBLEMS Type Condition ICD9-CM Code [id number] Code Onset Dates Condition S tatus SNOMED Code Problem Anxiety F41.9 Active 95436138 Problem Post depression F53 Active [id number] ALLERGIES No Information SOCIAL HISTORY Never Assessed PLAN OF CARE VITAL SIGNS MEDICATIONS Unknown Medications RESULTS No Results PROCEDURES No Known procedures IMMUNIZATIONS No Known Immunizations MEDICAL (GENERAL) HISTORY Type Description Date Medical History Depression Surgical History Exploratory cervical 2014 Hospitalization History childbirth only
--- OUTSIDE RECORDS SUMMARY | 2019-10-12 19:28 | XMS REPORT ---
Author Author Janae MIKE [facility] Address [address] [place] [address] Care Team Providers Care Fence Repairman Name Role Phone AUDIE MIKE Unavailable PROBLEMS Type Condition ICD9-CM Code [id number] Code Onset Dates Condition S tatus SNOMED Code Problem Post depression F53 Active 46133674 Problem Anxiety F41.9 Active 08372296 Assessment problem Z91.89 Mar, Acti ve [id number] Assessment Breast pain, right N64.4 Mar, Active 05738166 ALLERGIES Substance Reaction Event Type Date Status Tramadol HCl anaphylaxis Drug Allergy Mar, Active betadine rash Non Drug Allergy Mar, Active SOCIAL HISTORY No smoking Hx information available PLAN OF CARE VITAL SIGNS Height 69.5 in 2016-04-06 Weight 188.0 lbs 2016-04-06 Heart Rate 79 bpm 2016-04-06 Respiratory Rate 18 2016-04-06 BMI 27.36 kg/m2 2016-04-06 Blood pressure systolic 118 mmHg 2016-04-06 Blood pressure diastolic 80 mmHg 2016-04-06 MEDICATIONS Medication Instructions Dosage Frequency Start Date End Date Duration S tatus Active Amoxicillin 500 MG Orally every 12 hrs 2 tablet 12h Mar, 201 6 7 Apr, 2016 10 day(s) Active Sinus Active BusPIRone HCl 10 mg Orally Twice a day NEEDED FOR ANXIETY 1 tabl et Dec, Active Zoloft 50 mg Orally Once a day 1 tablet 24h 16 Oct, 2015 Active RESULTS No Results PROCEDURES Procedure Date Ordered Related Diagnosis Body Site Office Visit, Est Pt., Level 3 Apr 06, 2016 IMMUNIZATIONS No Known Immunizations
--- OUTSIDE RECORDS SUMMARY | 2019-10-12 19:28 | XMS REPORT ---
Author Janae Alvarado [facility] eClinicalWorks Address Unknown Phone Unavailable Care Team Providers Care Issuer Name Role Phone AUDIE MIKE CP Unavailable Allergies, Adverse Reactions, Alerts Substance Reaction Event Type Tramadol HCl anaphylaxis Drug Allergy betadine rash Non Drug Allergy Problems Problem Type Condition Code Onset Dates Condition Statu s Assessment Otitis externa of both ears H60.93 Active Assessment Overweight E66.3 Active Assessment Breast feeding status of mother Z39.1 Active Problem Counseling on other sexually transmitted diseases V65. 45 Active Problem Trichomonal vulvovaginitis 131.01 A ctive Problem Screening examination for venereal disease V74.5 Active Problem Streptococcal sore throat 034.0 Ac tive Assessment Post depression F53 Activ e Problem Routine gynecological examination V72.31 Active Problem Screening examination for pulmonary tuberculosis V74.1 Active Medications Medication Code System Code Instructions Start Date End Date Status Dosage Cetirizine HCl [facility] [address]-34 10 MG Orally Once a day 1 tablet as needed Zoloft [facility] [address]-47 50 mg Orally Once a day October 25, 2015 1 tablet Flonase Allergy Relief [facility] [address]-77 50 MCG/ACT Nasall y Once a day October 20, 2015 1 spray in each nost ril Procedures Procedure Coding System Code Date Office Visit, Est Pt., Level 3 CPT-4 44118 A [facility] 2015 Vital Signs Date/Time: October 25, 2015 Temperature 98.0 F Weight 194.3 lbs Height 69.5 in BMI 28.28 Index Blood Pressure Diastolic 76 mmHg Blood Pressure Systolic 122 mmHg Cardiac Monitoring Heart Rate 85 bpm Results No Known Results Summary Purpose eClinicalWorks Submission
--- OUTSIDE RECORDS SUMMARY | 2019-10-12 19:28 | XMS REPORT ---
Author Author Janae CASANOVA Organization [facility] Address [address] [place] [address] Care Team Providers Care Senior Marketing Analyst Name Role Phone BRITTANY CASANOVA Unavailable PROBLEMS Type Condition ICD9-CM Code OAY10-NK Code Onset Dates Condition S tatus SNOMED Code Problem Nipple pain N64.4 Active 80177808 3 Problem Acute midline thoracic back pain M54.6 Active 308577271 Problem Anxiety F41.9 Active 39552668 Problem Post depression F53 Active [id number] ALLERGIES No Information ENCOUNTERS Encounter Location Date Diagnosis [facility] [address] [id number] [place] [address] Jan, [place] [address] [facility] [address] [id number] [id number] Jan, Nipple pain N64.[address] [id number][place] [id number] Oct, Strep throat J02.[address] [id number][place] [id number] Aug, Acute midline thoracic back pain M54.[address] [id number][place] [id number] Jul, Acute low back pain without sciatica, un specified back pain laterality M54.5 [facility] [address] [facility] [address] [id number] [id number] Jul, Gastroenteritis K52.9 [facility] [address] [id number] [place] [id number] Feb, [facility] [address] [id number] [place] [id number] Feb, [facility] [address] [id number] [place] [id number] Feb, [facility] [place] [address] [id number] [place] [id number] Dec, [facility] [place] [address] [id number] [place] [id number] Dec, [facility] [address] [id number] [place] [id number] Oct, Strep sore throat J02.0 and Fever, unspe cified fever cause R50.[address] [facility] [address] [id number] [facility] [place] [id number] Oct, [facility] [place] [address] [id number] [place] [id number] Aug, [facility] [address] [id number] [place] [id number] Jul, UTI symptoms R39.[address] [facility] [address] [id number] [facility] [id number] Jun, Acute non-recurrent maxillary sinusitis J01.00 and Anxiety F41.9 [facility] [place] [address] [id number] [place] [id number] Jun, [facility] [place] [address] [id number] [place] [id number] Apr, [facility] [address] [id number] [facility] [id number] Apr, Breast pain, right N64.4 [facility] [address] [id number] [facility]ORIAL [facility] [id number] Mar, problem Z91.89 and Breast pain, right N64.4 [facility] [address] [id number] [place] [id number] Dec, Post depression F53 and Anxiety F 41.[address] [facility] [address] [id number] [facility] [id number] Oct, OME (otitis media with effusion) H65.90 ; Dizziness R42 and Post depression F53 [facility] [address] [id number] [id number] Oct, Post depression F53 and Overweigh t E66.3 [facility] [address] [id number] [id number] Oct, Post depression F53 ; Overweight E66.3 ; Breast feeding status of mother Z39.1 and Otitis externa of both ears H60.93 [facility] [address] [facility] [id number] [address] [place] [phone] Oct, [facility] [address] [id number] [id number] Oct, Otitis externa H60.90 and Vertigo R42 [facility] [place] [address] [id number] [place] [id number] May, [facility] [place] [address] [id number] [place] [id number] Apr, [facility] [place] [address] [id number] [place] [id number] Apr, [facility] [address] [facility] [id number] [address] [place] [phone] Oct, [facility] [address] [facility] [id number] [address] [place] [phone] Oct, [facility] [address] [facility] [id number] [address] [place] [phone] Mar, [facility] [address] [facility] [id number] [address] [place] [phone] Mar, [facility] [address] [place] [id number] [address] [place] [phone] Mar, [facility] [address] [facility] [id number] [address] [place] [phone] Mar, [facility] [address] [place] [id number] [address] [place] [phone] November, [facility] [address] [facility] [id number] [address] [place] [phone] November, [facility] [address] [facility] [id number] [address] [place] [phone] November, [facility] [address] [facility] [id number] [address] [place] [phone] November, [facility] [address] [facility] [id number] [address] [place] [phone] November, [facility] [address] [facility] [id number] [address] [place] [phone] November, [facility] [address] [facility] [id number] [address] [place] [phone] November, IMMUNIZATIONS No Known Immunizations SOCIAL HISTORY Never Assessed REASON FOR VISIT PLAN OF CARE VITAL SIGNS MEDICATIONS Medication Instructions Dosage Frequency Start Date End Date Duration S tatus Bactroban 2 % Externally 2 times a day 1 application to affected ar ea 12h Jan, Jan, 10 day(s) Active RESULTS No Results PROCEDURES No Known procedures INSTRUCTIONS MEDICATIONS ADMINISTERED No Known Medications MEDICAL (GENERAL) HISTORY Type Description Date Medical History Depression Surgical History Exploratory cervical 2013 Hospitalization History childbirth only Hospitalization History 07/2017 ER for fall
--- OUTSIDE RECORDS SUMMARY | 2019-10-12 19:28 | XMS REPORT ---
Author Janae Alvarado Organization eClinicalWorks Address Unknown Phone Unavailable Care Team Providers Care Mattress Maker Name Role Phone AUDIE MIKE CP Unavailable Allergies, Adverse Reactions, Alerts Substance Reaction Event Type Tramadol HCl anaphylaxis Drug Allergy betadine rash Non Drug Allergy Problems Problem Type Condition Code Onset Dates Condition Statu s Assessment Dizziness R42 Active Assessment Post depression F53 Activ e Problem Counseling on other sexually transmitted diseases V65. 45 Active Problem Trichomonal vulvovaginitis 131.01 A ctive Problem Screening examination for venereal disease V74.5 Active Problem Streptococcal sore throat 034.0 Ac tive Assessment OME (otitis media with effusion) H65.90 Active Problem Routine gynecological examination V72.31 Active Problem Screening examination for pulmonary tuberculosis V74.1 Active Medications Medication Code System Code Instructions Start Date End Date Status Dosage HydrOXYzine HCl [facility] [address]-93 25 MG Orally every 8 hrs - PRN anxiety November 06, 2015 1 tablet as needed Medrol (Fracisco) [facility] [address]-22 4 MG Orally Once a day November 06, 2015 as directed Zoloft [facility] [address]-88 50 mg Orally Once a day October 25, 2015 1 tablet Procedures Procedure Coding System Code Date Office Visit, Est Pt., Level 3 CPT-4 36392 A [facility] 2015 Vital Signs Date/Time: November 06, 2015 Temperature 97.4 F Weight 192.6 lbs Height 69.5 in BMI 28.03 Index Blood Pressure Diastolic 84 mmHg Blood Pressure Systolic 122 mmHg Cardiac Monitoring Heart Rate 78 bpm Results No Known Results Summary Purpose eClinicalWorks Submission
--- OUTSIDE RECORDS SUMMARY | 2019-10-12 19:29 | XMS REPORT | Continuity of Care Document ---
Author Organization Unknown Address Unknown Phone Unavailable Allergies Active Description Code Type Severity Reaction Onset Reported/Identified Relationship to Patient Clinical Status Yes tramadol [id number] Drug Allergy Moderate N/A 12/14/2012 Yes povidone-iodine [id number] D rug Allergy Unknown RASH 04/18/2014 Yes Soap [id number] Drug Allergy Unknown RASH 04/18/2014 Yes tramadol [id number] Drug Allergy Severe PANIC ATTACH LI 09/12/2019 Yes chlorhexidine [id number] Ashish g Allergy Mild RASH 09/12/2019 Yes adhesive tape [id number] Ashish g Allergy Mild N/A 09/14/2019 Yes latex [id number] Drug Allergy Mild Rash 09/14/2019 Medications There is no data. Problems Date Dx Coded Attending Type Code Diagnosis Diagnosed By 11/13/2013 AUDIE MIKE APRN 131.01 VAGINITIS TRICHOMONAS VAGINALIS 11/13/2013 AUDIE MIKE APRN V65.45 STD COUNSELING 11/13/2013 AUDIE MIKE APRN V72.31 ROUTINE PELVIC EXAM 11/13/2013 AUDIE MIKE APRN V74.5 STD SCREEN 11/13/2013 KATY WAYNE DO 131.01 VAGINITIS TRICHOMONAS VAGINALIS 11/13/2013 KATY WAYNE DO V65.45 STD COUNSELING 11/13/2013 KATY WAYNE DO V72.31 ROUTINE PELVIC EXAM 11/13/2013 KATY WAYNE DO V74.5 STD SCREEN 11/13/2013 BRITTANY CASANOVA APRN 131.01 VAGINITIS TRICHOMONAS VAGINALIS 11/13/2013 BRITTANY CASANOVA APRN V65.45 STD COUNSELING 11/13/2013 BRITTANY CASANOVA APRN V72.31 ROUTINE PELVIC EXAM 11/13/2013 BRITTANY CASANOVA APRN V7 4.5 STD SCREEN 03/16/2014 KATY WAYNE DO V74.1 SCREENING EXAMINATION FOR PULMONARY TUBERCULOSIS 03/16/2014 EDILBERTO ROLLENBRITTANY Jean V7 4.1 SCREENING EXAMINATION FOR PULMONARY TUBERCULOSIS 04/03/2014 EDILBERTO ALLISON BRITTANY L 03 4.0 STREP THROAT 04/15/2014 CLARENCE SOTO RESIDENTIAL FEE APPRAISER Ot 616 .0 CERVICITIS 04/15/2014 CLARENCE SOTO RESIDENTIAL FEE APPRAISER Ot 789.00 ABDOMINAL PAIN, UNSPECIFIED SITE 09/13/2019 SEALS DO, NIDIA E Ot Z01.8 18 ENCOUNTER FOR OTHER PREPROCEDURAL EXAMIN 09/21/2019 SEALS DO, NIDIA E Ot E66.9 OBESITY, UNSPECIFIED 09/21/2019 SEALS DO, NIDIA E Ot F32.9 MAJOR DEPRESSIVE DISORDER, SINGLE EPISOD 09/21/2019 SEALS DO, NIDIA E Ot N72 INFLAMMATORY DISEASE OF CERVIX UTERI 09/21/2019 SEALS DO, NIDIA E Ot N73.6 FEMALE PELVIC PERITONEAL ADHESIONS (POST 09/21/2019 SEALS DO, NIDIA E Ot N83.2 01 UNSPECIFIED OVARIAN CYST, RIGHT SIDE 09/21/2019 SEALS DO, NIDIA E Ot N83.2 02 UNSPECIFIED OVARIAN CYST, LEFT SIDE 09/21/2019 SEALS DO, NDIIA E Ot N92.1 EXCESSIVE AND FREQUENT MENSTRUATION WITH 09/21/2019 SEALS DO, NIDIA E Ot N94.6 DYSMENORRHEA, UNSPECIFIED 09/21/2019 SEALS DO, NIDIA E Ot Z68.3 1 BODY MASS INDEX (BMI) 31.0-31.9, ADULT 09/21/2019 SEALS DO, NIDIA E Ot Z79.8 99 OTHER [facility] (CURRENT) DRUG THERAPY 09/21/2019 SEALS DO, NIDIA E Ot Z82.4 9 FAMILY HX OF ISCHEM HEART DIS AND OTH DI 09/21/2019 SEALS DO, NIDIA E Ot Z88.6 ALLERGY STATUS TO ANALGESIC AGENT STATUS 09/21/2019 SEALS DO, NIDIA E Ot Z88.8 ALLERGY STATUS TO OTH DRUG/MEDS/BIOL SUB 09/21/2019 SEALS DO, NIDIA E Ot Z91.0 40 LATEX ALLERGY STATUS 09/21/2019 SEALS DO, NIDIA E Ot Z91.0 48 OTHER NONMEDICINAL SUBSTANCE ALLERGY STA Procedures Code Description [place] [address] TRIC [facility] (IN-HOUSE) 11/13/2013 17089 UA L VENKATA DIP 11/13/2013 78800 GC/C HLAM PROBE ([facility]) 11/13/2013 06532 PAP SMEAR 11/13/2013 34660 TB T EST INTRADERMAL 03/16/2014 Results Test Result Range CULTURE, VIRAL (HSV W/TYPING) - 07/30/19 09:40 SOURCE: CERVIX NRG HSV CULTURE: NOT ISOLATED NRG SUREPATH PAP RFX HPV mRNA E6/E7 - 09:40 CLINICAL INFORMATION: NRG LMP: CURRENT NRG PREV. PAP: 2017 NRG PREV. BX: NA NRG SOURCE: Cervix NRG STATEMENT OF ADEQUACY: NRG INTERPRETATION/RESULT: NRG STREET LIGHT SERVICER HELPER: NRG COMMENT NRG LIPID PANEL - 07/30/19 09:48 CHOLESTEROL, TOTAL 117 mg/dL <200 HDL CHOLESTEROL 41 mg/dL >50 TRIGLYCERIDES 61 mg/dL <150 LDL-CHOLESTEROL 62 mg/dL (calc) NRG CHOL/HDLC RATIO 2.9 (calc) <5.0 NON HDL CHOLESTEROL 76 mg/dL (calc) <130 CMP - 07/30/19 09:48 GLUCOSE 103 mg/dL 65-99 UREA NITROGEN (BUN) 11 mg/dL 7-25 CREATININE 0.72 mg/dL 0.50-1.10 eGFR NON-AFR. MALTESE 111 mL/min/1.73m2 > OR = 60 eGFR 128 mL/min/1.73m2 > OR = 60 BUN/CREATININE RATIO NOT APPLICABLE (calc) 6-22 SODIUM 139 mmol/L 135-146 POTASSIUM 4.1 mmol/L 3.5-5.3 CHLORIDE 107 mmol/L 98-110 CARBON DIOXIDE 26 mmol/L 20-32 CALCIUM 9.4 mg/dL 8.6-10.2 PROTEIN, TOTAL 7.7 g/dL 6.1-8.1 ALBUMIN 4.6 g/dL 3.6-5.1 GLOBULIN 3.1 g/dL (calc) 1.9-3.7 ALBUMIN/GLOBULIN RATIO 1.5 (calc) 1.0-2. 5 BILIRUBIN, TOTAL 0.5 mg/dL 0.2-1.2 ALKALINE PHOSPHATASE 55 U/L 33-115 AST 16 U/L 10-30 ALT 16 U/L 6-29 CBC - 07/30/19 09:48 WHITE BLOOD CELL COUNT 9.2 Thousand/uL 3 .8-10.8 RED BLOOD CELL COUNT 4.64 Million/uL 3.8 0-5.10 HEMOGLOBIN 13.4 g/dL 11.7-15.5 HEMATOCRIT 39.2 % 35.0-45.0 MCV 84.5 fL 80.0-100.0 MCH 28.9 pg 27.0-33.0 MCHC 34.2 g/dL 32.0-36.0 RDW 11.8 % 11.0-15.0 PLATELET COUNT 334 Thousand/uL 140-400 MPV 11.4 fL 7.5-12.5 ABSOLUTE NEUTROPHILS 5722 cells/uL 1500- 7800 ABSOLUTE LYMPHOCYTES 2659 cells/uL 850-3 900 ABSOLUTE MONOCYTES 598 cells/uL 200-950 ABSOLUTE EOSINOPHILS 184 cells/uL 15-500 ABSOLUTE BASOPHILS 37 cells/uL 0-200 NEUTROPHILS 62.2 % NRG LYMPHOCYTES 28.9 % NRG MONOCYTES 6.5 % NRG EOSINOPHILS 2.0 % NRG BASOPHILS 0.4 % NRG THYROID ANALYZER - 07/30/19 09:48 TSH 1.59 mIU/L NRG BLOOD TPYE/RH FACTOR - 09/10/19 14:14 ABO GROUP A NRG RH TYPE RH(D) NEGATIVE NRG ANTIBODY SCREEN - 09/10/19 14:14 ANTIBODY SCREEN, RBC W/REFL ID, TITER AND AG NO ANTIBODIES DETECTED NRG Complete blood count (CBC) with automate d white blood cell (WBC) differential - 09/14/19 07:55 Blood leukocytes automated count (number/volume) 6.0 10*3/uL 4.3-11.0 Blood erythrocytes automated count (number/volume) 3.18 10*6/uL 4.35-5.85 Venous blood hemoglobin measurement (mass/volume) 8.9 g/dL 11.5-16.0 Blood hematocrit (volume fraction) 27 % 35-52 Automated erythrocyte mean corpuscular volume 85 [ foz_us] 80-99 Automated erythrocyte mean corpuscular h emoglobin (mass per erythrocyte) 28 pg 25-34 Automated erythrocyte mean corpuscular h emoglobin concentration measurement (mass/volume) 33 g/dL 32-36 Automated erythrocyte distribution width ratio 12. 4 % 10.0- 14.5 Automated blood platelet count (count/volume) 220 10*3/uL 130-400 Automated blood platelet mean volume measurement 9.8 [foz_us] 7.4-10.4 Automated blood neutrophils/100 leukocytes 56 % 42-75 Automated blood lymphocytes/100 leukocytes 35 % 12-44 Blood monocytes/100 leukocytes 7 % 0-12 Automated blood eosinophils/100 leukocytes 2 % 0-10 Automated blood basophils/100 leukocytes 1 % 0-10 Blood neutrophils automated count (number/volume) 3.3 10*3 1.8-7.8 Blood lymphocytes automated count (number/volume) 2.1 10*3 1.0-4.0 Blood monocytes automated count (number/volume) 0. 4 10*3 0.0-1.0 Automated eosinophil count 0.1 10*3/uL 0 .0-0.3 Automated blood basophil count (count/volume) 0.0 10*3/uL 0.0-0.1 Blood type T Indirect antibody screen pa dorian - 09/14/19 07:55 WRISTBAND NUMBER [id number] NRG ABO+Rh group AN NRG Blood group antibody screen NEGATIVE NR G Methicillin resistant Staphylococcus aur eus (MRSA) screening culture - 09/14/19 07:55 Methicillin resistant Staphylococcus aureus (MRSA) scr eening culture NEG NRG Complete blood count (CBC) with automate d white blood cell (WBC) differential - 09/15/19 07:10 Blood leukocytes automated count (number/volume) 20.6 10*3/uL 4.3-11.0 Blood erythrocytes automated count (number/volume) 3.39 10*6/uL 4.35-5.85 Venous blood hemoglobin measurement (mass/volume) 9.6 g/dL 11.5-16.0 Blood hematocrit (volume fraction) 29 % 35-52 Automated erythrocyte mean corpuscular volume 86 [ foz_us] 80-99 Automated erythrocyte mean corpuscular h emoglobin (mass per erythrocyte) 28 pg 25-34 Automated erythrocyte mean corpuscular h emoglobin concentration measurement (mass/volume) 33 g/dL 32-36 Automated erythrocyte distribution width ratio 12. 3 % 10.0- 14.5 Automated blood platelet count (count/volume) 305 10*3/uL 130-400 Automated blood platelet mean volume measurement 10.5 [foz_us] 7.4-10.4 Automated blood neutrophils/100 leukocytes 77 % 42-75 Automated blood lymphocytes/100 leukocytes 16 % 12-44 Blood monocytes/100 leukocytes 6 % 0-12 Automated blood eosinophils/100 leukocytes 0 % 0-10 Automated blood basophils/100 leukocytes 0 % 0-10 Blood neutrophils automated count (number/volume) 15.9 10*3 1.8-7.8 Blood lymphocytes automated count (number/volume) 3.4 10*3 1.0-4.0 Blood monocytes automated count (number/volume) 1. 3 10*3 0.0-1.0 Automated eosinophil count 0.0 10*3/uL 0 .0-0.3 Automated blood basophil count (count/volume) 0.0 10*3/uL 0.0-0.1 Encounters ACCT No. Visit Date/Time Discharge Status Pt. Type Provider Facility Loc./Unit Complaint [id number] 07/30/2019 09:00:00 07/30/2019 23:59: 59 CLS Outpatient AUDIE MIKE APRN [facility] [id number] 09/10/2019 13:00:00 Document Registration [id number] 07/30/2019 09:00:00 Document Registration [id number] 04/03/2014 16:52:00 04/03/2014 23:59: 59 CLS Outpatient NIVIAMAYA BRITTANY ALLISON [id number] 03/16/2014 09:07:00 03/16/2014 23:59: 59 CLS Outpatient KATY WAYNE DO [id number] 11/13/2013 11:39:00 11/13/2013 23:59: 59 CLS Outpatient AUDIE MIKE APRN [id number] 09/14/2019 07:16:00 020 18:45:00 DIS Outpatient NIDIA DAY DO [facility] SDC MENOMETRORRHAGIA [id number] 09/12/2019 05:35:00 020 09:08:00 DIS Outpatient NIDIA DAY DO [facility] PREOP MENOMETRORRHAGIA [id number] 04/15/2014 16:19:00 014 17:45:00 DIS Emergency CLARENCE SOTO APRN [facility] ER ABD PAIN [id number] 03/01/2014 20:47:00 014 21:25:00 DIS Emergency [id number] 04/17/2013 10:50:00 23:59:59 CLS Outpatient [id number] 12/15/2012 10:20:00 16:38:00 DIS Outpatient [id number] 12/06/2012 08:48:00 23:59:59 CLS Outpatient
[2019-10-12 19:47] LABS: BASOPHILS # (AUTO) 0.1 10^3/uL (0.0-0.1); BASOPHILS % (AUTO) 1 % (0-10); EOSINOPHILS # (AUTO) 0.2 10^3/uL (0.0-0.3); EOSINOPHILS % (AUTO) 2 % (0-10); HEMATOCRIT 37 % (35-52); HEMOGLOBIN 12.5 G/DL (11.5-16.0); LYMPHOCYTES # (AUTO) 4.3 X 10^3 (1.0-4.0); LYMPHOCYTES % (AUTO) 36 % (12-44); MEAN CORPUSCULAR HEMOGLOBIN 28 PG (25-34); MEAN CORPUSCULAR HGB CONC 34 G/DL (32-36); MEAN CORPUSCULAR VOLUME 84 FL (80-99); MONOCYTES # (AUTO) 0.9 X 10^3 (0.0-1.0); MONOCYTES % (AUTO) 8 % (0-12); NEUTROPHILS # (AUTO) 6.4 X 10^3 (1.8-7.8); NEUTROPHILS % (AUTO) 54 % (42-75); PLATELET COUNT 343 10^3/uL (130-400); RED CELL DISTRIBUTION WIDTH 13.2 % (10.0-14.5); WHITE BLOOD COUNT 11.9 10^3/uL (4.3-11.0)
--- NOTE | 2019-10-12 19:49 | ED GU-Female ---
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 SHE STARTED HAVING VAG BLEED WITH CLOTS Nursing Sepsis Screen: No Definite Risk Source: patient Exam Limitations: no limitations History of Present Illness Date Seen by Provider: Oct 12, 2019 Time Seen by Provider: 19:44 Initial Comments Patient had a vaginal hysterectomy on 09/14/[address] Kim. Had been doing great without pain fever or bleeding until 2 hours prior to arrival today. She developed sudden onset large amount of bleeding. She denies any insertion of foreign body in the vaginal vault, no actual intercourse trauma or lifting. Timing/Duration: constant Severity/Quality: moderate Radiation: none Activities at Onset: none Associated Symptoms: denies symptoms Allergies and Home Medications Allergies Coded Allergies: adhesive tape (Verified Allergy, Mild, 09/14/19) PAPER TAPE chlorhexidine (Verified Allergy, Mild, RASH, 09/12/19) latex (Verified Allergy, Mild, Rash, 09/14/19) BUMPS, RASH tramadol (Verified Adverse Reaction, Severe, PANIC ATTACH LIKE SYMPTOMS, 09/12/19) Had panic attack like symptoms Home Medications Docusate Sodium 100 Mg Capsule, 100 MG PO BID Prescribed by: NIDIA DAY on 09/15/19 1109 Ibuprofen 800 Mg Tablet, 800 MG PO Q8H Prescribed by: NIDIA ADY on 09/15/19 1109 Oxycodone HCl/Acetaminophen 1 Each Tablet, 1 TAB PO Q4H Prescribed by: NIDIA DAY on 09/15/19 1109 Patient Home Medication List Home Medication List Reviewed: Yes Review of Systems Review of Systems Constitutional: see HPI EENTM: see HPI Respiratory: no symptoms reported Cardiovascular: no symptoms reported Musculoskeletal: no symptoms reported Skin: no symptoms reported Psychiatric/Neurological: No Symptoms Reported Past [id number] Hx Patient Social History Alcohol Use: Denies Use Recreational Drug Use: No Smoking Status: Never a Smoker 2nd Hand Smoke Exposure: No Recent Foreign Travel: No Contact w/Someone Who Travel: No Recent Infectious Disease Expo: No Recent Hopitalizations: No Physical Abuse: No Sexual Abuse: No Mistreated: No Fear: No Immunizations Up To Date Tetanus Booster (TDap): Unknown Date of Influenza Vaccine: Apr 16, 2019 Seasonal Allergies Seasonal Allergies: No Past Medical History Surgeries: Yes (COLONOSCOPY, EXPLORATOR LAP-ENDOMETRIOSIS) Respiratory: No Currently Using CPAP: No Currently Using BIPAP: No Cardiac: Yes Palpitations Neurological: Yes Headaches /Migraines Reproductive Disorders: Yes Female Reproductive Disorders: Menstrual Problems, Endometriosis, Ovarian Cyst 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 SPLITTER History: IUD Sexually Transmitted Disease: No HIV/AIDS: No Genitourinary: No Gastrointestinal: No Musculoskeletal: No Endocrine: No (HX GESTATIONAL DIABETES) HEENT: Yes (GLASSES/CONTACTS) Loss of Vision: Denies Hearing Impairment: Denies Cancer: No Psychosocial: Yes Anxiety, Depression Integumentary: No Blood Disorders: No Adverse Reaction/Blood Tranf: No (N/A) Family Medical History Heart Disease, Cancer Physical Exam Vital Signs Vital Signs - First Documented 10/12/19 19:32 Temp 36.7 Pulse 99 Resp 16 B/P (MAP) 147/95 (112) Pulse Ox 99 O2 Delivery Room Air Capillary Refill : Less Than 3 Seconds Height, Weight, BMI Height: 5'9" Weight: 180lbs. oz. [id number]; 31.00 BMI Method:Stated General Appearance: WD/WN, no apparent distress, other (inches but hemodynamically stable with a heart rate of 90s, blood pressure of blood pressure of 140s systolic.) HEENT: PERRL/EOMI, normal ENT inspection Cardiovascular: regular rate, rhythm, no murmur Respiratory: no respiratory distress, no accessory muscle use Gastrointestinal: normal bowel sounds, non tender Genital/Rectal: other (vaginal exam done with Nubia SUN at the bedside. There was a large clot in the vaginal vault. Additional blood was suctioned out using [place] suction with speculum. Persistent oozing of blood from the vaginal cuff at the sutures. There is no evisceration of bowel. This was irrigated with 60 cc of sterile water. Vaginal vault was packed with 4 x 4's.) Neurologic/Psychiatric: alert, normal mood/affect, oriented x 3 Skin: normal color, warm/dry Progress/Results/Core Measures Suspected Sepsis Recent Fever Within 48 Hours: No Infection Criteria Present: None New/Unexplained Altered Menta: No Sepsis Screen: No Definite Risk SIRS Temperature: Pulse: 99 Respiratory Rate: 16 Laboratory Tests 10/12/19 19:33: White Blood Count 11.9H Blood Pressure 147 /95 Mean: 112 Laboratory Tests 10/12/19 19:33: Platelet Count 343 Results/Orders Lab Results Laboratory Tests Test 10/12/19 19:33 Range/Units White Blood Count 11.9 H 4.3-11.0 10^3/uL Red Blood Count 4.45 4.35-5.85 10^6/uL Hemoglobin 12.5 11.5-16.0 G/DL Hematocrit 37 35-52 % Mean Corpuscular Volume 84 80-99 FL Mean Corpuscular Hemoglobin 28 25-34 PG Mean Corpuscular Hemoglobin Concent 34 32-36 G/DL Red Cell Distribution Width 13.2 10.0-14.5 % Platelet Count 343 130-400 10^3/uL Mean Platelet Volume 10.0 7.4-10.4 FL Neutrophils (%) (Auto) 54 42-75 % Lymphocytes (%) (Auto) 36 12-44 % Monocytes (%) (Auto) 8 0-12 % Eosinophils (%) (Auto) 2 0-10 % Basophils (%) (Auto) 1 0-10 % Neutrophils # (Auto) 6.4 1.8-7.8 X 10^3 Lymphocytes # (Auto) 4.3 H 1.0-4.0 X 10^3 Monocytes # (Auto) 0.9 0.0-1.0 X 10^3 Eosinophils # (Auto) 0.2 0.0-0.3 10^3/uL Basophils # (Auto) 0.1 0.0-0.1 10^3/uL My Orders Orders - CLARENCE SOTO APRN Cbc With Automated Diff (10/12/19 19:24) Red Cells Leukocytes Reduced (10/12/19 19:24) Ed Iv/Invasive Line Start (10/12/19 19:24) Type And Screen (10/12/19 19:24) Fentanyl Injection (Sublimaze Injection (10/12/19 20:00) Vital Signs/I&O 10/12/19 19:32 Temp 36.7 Pulse 99 Resp 16 B/P (MAP) 147/95 (112) Pulse Ox 99 O2 Delivery Room Air Capillary Refill : Less Than 3 Seconds Blood Pressure Mean: 112 Departure Communication (Admissions) 2016-Dr. Kim was kind enough to stop by and evaluate the patient. The vaginal packing was removed, we then soaked a large tampon and Monsel solution and left in place. She will remove this tomorrow night at home and follow-up with him in the office on Tuesday. Impression Primary Impression: Postoperative vaginal bleeding Disposition: HOME, SELF-CARE Condition: Stable Departure-Patient Inst. Decision time for Depature: 20:17 [facility] Primary Care Physician Patient Instructions: Bleeding After Surgery Add. Discharge Instructions: 1. Return to ER for any concerns 2. Follow-up with Dr. Kim on Tuesday morning at 9 AM. Removed the tampon tomorrow night. All discharge instructions reviewed with patient and/or family. Voiced understanding. CLARENCE SOTO ENHANCED ENVIRONMENTAL OPERATOR Oct 12, 2019 19:49
[2019-10-12] MEDS ORDERED: fentaNYL INJECTION 100 MCG/2 ML AMP IVP ONE (20:00)
--- NOTE | 2019-10-12 20:10 | NUR ---
dr tejada to bedside. valery applied by him.
--- NOTE | 2019-10-12 20:25 | NUR ---
pt c/o some nausea. diagnostic sales specialist notified. orders recc'd
[2019-10-12] MEDS ORDERED: ONDANSETRON 4 MG/2 ML (SDV) Z0FRAN ONE (20:26)
[2019-10-12 20:38] VITALS: BP 121/84
[2019-10-12] MEDS ORDERED: ONDANSETRON 4 MG/2 ML (SDV) Z0FRAN IVP ONE (20:45)
== END 2019-10-12 20:45 | disposition home or self-care (01) ==
LOC: EDUNIT# 19:20 → ER 19:22
DX: N99.820 Postprocedural hemorrhage of a genitourinary system organ or structure following a genitourinary system procedure (principal); Z91.040 Latex allergy status; Z88.6 Allergy status to analgesic agent; F41.9 Anxiety disorder, unspecified; F32.9 Major depressive disorder, single episode, unspecified
CPT/HCPCS: 36415; 85025; 86850; 86900; 86901